=== PATIENT | female | born 1965 | race Caucasian/White ===

== ENCOUNTER 2017-12-05 05:14 | Emergency (ER) | payer MEDICAID ==
[2016-07-10 14:15] VITALS: BMI 27.3
[~2017-12-05 05:14] MED LIST: FLORAJEN3 CAPS460 MG PO; LEVAQUIN750 MG PO; Levaquin PREMIX IV
== END 2017-12-05 06:19 | disposition home or self-care (01) ==
LOC: D.ER 05:14
DX: S22.41XA Multiple fractures of ribs, right side, initial encounter for closed fracture (principal); W01.0XXA Fall on same level from slipping, tripping and stumbling without subsequent striking against object, initial encounter; Y93.89 Activity, other specified; Y92.019 Unspecified place in single-family (private) house as the place of occurrence of the external cause; F17.200 Nicotine dependence, unspecified, uncomplicated

== ENCOUNTER 2017-12-09 01:36 | Emergency (ER) | payer MEDICAID ==
[2016-07-10 14:15] VITALS: BMI 27.3
== END 2017-12-09 03:56 | disposition home or self-care (01) ==
LOC: D.ER 01:36
DX: S22.31XG Fracture of one rib, right side, subsequent encounter for fracture with delayed healing (principal); W01.0XXD Fall on same level from slipping, tripping and stumbling without subsequent striking against object, subsequent encounter

== ENCOUNTER 2019-01-29 13:07 | Emergency (ER) | payer MEDICAID ==
[~2019-01-29] VITALS: Ht 149.9 cm; Wt 63.6 kg
[2019-01-29 13:14] VITALS: BP 130/74; Ht 149.9 cm; Wt 63.6 kg
[2019-01-29 13:48] LABS: APPEARANCE CLEAR (CLEAR); COLOR STRAW (YELLOW); SPECIFIC GRAVITY 1.005 (1.005-1.020)
[2019-01-29 13:49] LABS: BILIRUBIN NEGATIVE (NEGATIVE); GLUCOSE NEGATIVE (NEGATIVE); KETONE NEGATIVE (NEGATIVE); NITRITE NEGATIVE (NEGATIVE); PROTEIN NEGATIVE (NEGATIVE); UROBILINOGEN NORMAL (NORMAL)
[2019-01-29 14:48] LABS: HEMATOCRIT 45.1 % (36.0-48.0); HEMOGLOBIN 15.4 g/dL (12-16); LYMPHOCYTES 26.3 % (15-50); MCH 35.6 pg (26.0-34.0); MCHC 34.1 g/dL (31.0-37.0); MCV 104.2 fL (80.0-100.0); MEAN PLATELET VOLUME 10.1 fL (7.4-10.4); NEUTROPHILS 60.7 % (40-80); PLATELET COUNT 124 10x3/uL (130-400); RBC 4.33 10x6/uL (4.00-5.40); RDW 13.5 % (11.5-14.5); WBC 4.1 10x3/uL (4.8-10.8)
[2019-01-29 15:01] LABS: ALBUMIN 3.4 g/dL (3.4-5.0); ALKALINE PHOSPHATASE 238 U/L (46-116); ALT (SGPT) 145 U/L (10-68); AMYLASE - SERUM 26 U/L (25-115); BILIRUBIN - TOTAL 0.82 mg/dL (0.2-1.3); CALC OSMOLALITY 271 mosm/kg (275-300); CALCIUM 8.9 mg/dL (8.5-10.1); CHLORIDE - SERUM 98 mmol/L (98-107); CREATININE - SERUM 0.8 mg/dL (0.6-1.3); GLUCOSE 91 mg/dL (74-106); LIPASE 233 U/L (73-393); POTASSIUM - SERUM 3.5 mmol/L (3.5-5.1); PROTEIN - SERUM 7.4 g/dL (6.4-8.2); SODIUM 137 mmol/L (136-145); UREA NITROGEN 7 mg/dL (7-18); eGFR NON AFRICAN AMERICAN 80 mL/min (90-120)
[2019-01-29 15:02] LABS: TROPONIN-I < 0.017 ng/mL (0.000-0.060)
== END 2019-01-29 15:00 | disposition left against medical advice (07) ==
LOC: D.ER 13:07
PROVIDERS: Family Medicine
DX: R19.7 Diarrhea, unspecified (principal); K62.5 Hemorrhage of anus and rectum

== ENCOUNTER 2019-09-05 14:53 | Emergency (ER) | payer MEDICAID ==
[2019-09-05 14:58] VITALS: BP 116/81; Ht 149.9 cm
== END 2019-09-05 16:27 | disposition left against medical advice (07) ==
LOC: D.ER 14:53
DX: T63.91XA Toxic effect of contact with unspecified venomous animal, accidental (unintentional), initial encounter (principal); W57.XXXA Bitten or stung by nonvenomous insect and other nonvenomous arthropods, initial encounter

== ENCOUNTER 2019-10-08 19:31 | Emergency (ER) | payer MEDICAID ==
[~2019-10-08] VITALS: Ht 149.9 cm; Wt 68.2 kg
[2019-10-08 19:45] VITALS: BP 125/85; Ht 149.9 cm; Wt 68.2 kg
[2019-10-08 20:10] LABS: APPEARANCE CLEAR (CLEAR); BILIRUBIN NEGATIVE (NEGATIVE); COLOR STRAW (YELLOW); GLUCOSE NEGATIVE (NEGATIVE); KETONE NEGATIVE (NEGATIVE); NITRITE NEGATIVE (NEGATIVE); PROTEIN TRACE mg/dL (NEGATIVE); SPECIFIC GRAVITY 1.005 (1.005-1.020); UROBILINOGEN NORMAL (NORMAL)
== END 2019-10-08 20:20 | disposition left against medical advice (07) ==
LOC: D.ER 19:31
PROVIDERS: Family Medicine
DX: R10.31 Right lower quadrant pain (principal)

== ENCOUNTER 2019-10-25 18:16 | Observation (INO) | payer MEDICAID ==
[~2019-10-25] VITALS: Ht 149.9 cm; Wt 65.9 kg
--- NOTE | 2019-10-25 19:20 | NUR ---
URINE SPECIMEN SENT TO LAB
[2019-10-25 19:30] LABS: APPEARANCE CLEAR (CLEAR); BILIRUBIN NEGATIVE (NEGATIVE); COLOR YELLOW (YELLOW); GLUCOSE NEGATIVE (NEGATIVE); KETONE NEGATIVE (NEGATIVE); NITRITE NEGATIVE (NEGATIVE); PROTEIN NEGATIVE (NEGATIVE); UROBILINOGEN NORMAL (NORMAL)
[2019-10-25 19:31] LABS: RED CELLS - URINE OCC /hpf (0-5); WHITE CELLS - URINE OCC /hpf (NEGATIVE)
[2019-10-25 19:45] LABS: CALC OSMOLALITY 285 mosm/kg (275-300); CALCIUM 8.9 mg/dL (8.5-10.1); CARBON DIOXIDE 26.3 mmol/L (21.0-32.0); CHLORIDE - SERUM 108 mmol/L (98-107); CREATININE - SERUM 0.7 mg/dL (0.6-1.3); GLUCOSE 98 mg/dL (74-106); POTASSIUM - SERUM 3.7 mmol/L (3.5-5.1); SODIUM 145 mmol/L (136-145); UREA NITROGEN 3 mg/dL (7-18); eGFR NON AFRICAN AMERICAN > 90 mL/min (90-120)
[2019-10-25 19:47] LABS: BASOPHILS 0.6 % (0-2); EOSINOPHILS 0.9 % (0-7); HEMATOCRIT 42.7 % (36.0-48.0); HEMOGLOBIN 13.6 g/dL (12-16); LYMPHOCYTES 27.8 % (15-50); MCH 32.1 pg (26.0-34.0); MCHC 31.9 g/dL (31.0-37.0); MCV 100.7 fL (80.0-100.0); MEAN PLATELET VOLUME 10.4 fL (7.4-10.4); MONOCYTES 8.6 % (2-11); NEUTROPHILS 62.1 % (40-80); PLATELET COUNT 111 10x3/uL (130-400); RBC 4.24 10x6/uL (4.00-5.40); RDW 14.2 % (11.5-14.5); WBC 6.8 10x3/uL (4.8-10.8)
--- NOTE | 2019-10-25 19:51 | NUR ---
DR LAND NOTIFIED AND REVIEWED PT's BEHAVIOR AND ASSESSMENT RESLUTS. PT IS A LOW BENI PER DR LAND, DR LAND STATED TO GIVE RESOURCES TO PT A T TIME OF DICHARGE. NO FURTHER ORDERS AT THIS TIME . RESOURCE REVIEWED WITH PT AND SHE VERBALIZED UNDERSTANDING.
--- NOTE | 2019-10-25 19:51 | NUR ---
MENTAL HEALTH SCREENING COMPLETE- LOW RISK.
[2019-10-25 19:53] LABS: ALBUMIN 3.1 g/dL (3.4-5.0); ALKALINE PHOSPHATASE 246 U/L (46-116); ALT (SGPT) 27 U/L (10-68); AMYLASE - SERUM 32 U/L (25-115); BILIRUBIN - TOTAL 1.14 mg/dL (0.2-1.3); LIPASE 224 U/L (73-393); PROTEIN - SERUM 7.5 g/dL (6.4-8.2)
--- NOTE | 2019-10-25 19:54 | NUR ---
PT CONSIDERED LOW RISK PER MENTAL HEALTH RN AND ASSESSMENT.
[2019-10-25 19:56] LABS: TROPONIN-I < 0.017 ng/mL (0.000-0.060)
--- NOTE | 2019-10-25 20:20 | NUR ---
PT LEFT ED VIA STRETCHER FOR CT.
--- NOTE | 2019-10-25 20:39 | NUR ---
PT RETURNED FROM CT VIA STRETCHER.
--- NOTE | 2019-10-25 21:43 | NUR ---
PT UPDATED ON PLAN OF CARE. NO S/S OF ACUTE DISTRESS NOTED. PT FAMILY AT BEDSIDE.
[2019-10-25 21:44] VITALS: BP 140/80
--- NOTE | 2019-10-25 21:51 | NUR ---
PT AMBULATED TO RESTROOM WITH A STEADY GAIT.
--- NOTE | 2019-10-25 22:28 | NUR ---
PT AMBULATED TO RESTROOM WITH A STEADY GAIT.
--- NOTE | 2019-10-25 22:39 | NUR ---
REC'D PATIENT FROM ER. NO S/S OF DISTRESS. BED IN LOWEST POSITION AND CALL LIGHT WITHIN REACH. ENCOURAGED THE PATIENT TO CALL IF SHE HAS NEEDS. WILL CONTINUE TO MONITOR.
[2019-10-25 23:00] VITALS: BP 119/73; BMI 29.3
[2019-10-26] VITALS: BP 112/67
[2019-10-26 04:00] VITALS: BP 114/4
[2019-10-26 04:43] LABS: BASOPHILS 0.5 % (0-2); EOSINOPHILS 1.9 % (0-7); HEMATOCRIT 35.2 % (36.0-48.0); HEMOGLOBIN 11.3 g/dL (12-16); IMMATURE GRANULOCYTES 0.2 % (0-5); LYMPHOCYTES 36.4 % (15-50); MCH 31.7 pg (26.0-34.0); MCHC 32.1 g/dL (31.0-37.0); MCV 98.9 fL (80.0-100.0); MEAN PLATELET VOLUME 9.9 fL (7.4-10.4); MONOCYTES 7.7 % (2-11); NEUTROPHILS 53.3 % (40-80); PLATELET COUNT 94 10x3/uL (130-400); RBC 3.56 10x6/uL (4.00-5.40); RDW 14.2 % (11.5-14.5); WBC 4.3 10x3/uL (4.8-10.8)
[2019-10-26 04:59] LABS: APTT 42.7 SECONDS (22.8-39.4); INR 1.29 (0.85-1.17); PROTIME 15.5 SECONDS (11.6-15.0)
[2019-10-26 05:21] LABS: ALBUMIN 2.6 g/dL (3.4-5.0); ALKALINE PHOSPHATASE 195 U/L (46-116); AMYLASE - SERUM 25 U/L (25-115); BILIRUBIN - TOTAL 0.93 mg/dL (0.2-1.3); CALC OSMOLALITY 280 mosm/kg (275-300); CALCIUM 7.9 mg/dL (8.5-10.1); CHLORIDE - SERUM 107 mmol/L (98-107); GLUCOSE 74 mg/dL (74-106); MAGNESIUM - SERUM 1.7 mg/dL (1.8-2.4); PHOSPHOROUS 2.9 mg/dL (2.5-4.9); PROTEIN - SERUM 6.1 g/dL (6.4-8.2); SODIUM 143 mmol/L (136-145); THYROID STIMULATING HORMONE 6.09 uIU/mL (0.36-3.74); UREA NITROGEN 3 mg/dL (7-18)
[2019-10-26 05:24] LABS: ALT (SGPT) 20 U/L (10-68); CREATININE - SERUM 0.5 mg/dL (0.6-1.3); LIPASE 160 U/L (73-393); POTASSIUM - SERUM 3.1 mmol/L (3.5-5.1); eGFR NON AFRICAN AMERICAN > 90 mL/min (90-120)
[2019-10-26 07:42] VITALS: Ht 149.9 cm; Wt 65.9 kg
--- NOTE | 2019-10-26 08:00 | NUR ---
AWAKE AND ALERT. ORIENTED X3. NO C/O AT THIS TIME. LUNGS ARE CLEAR BILATERALLY, NO COUGH NOTED. SKIN IS INTACT WTIHOUT REDNESS. IV TO LEFT FOREARM IS PATENT WITHOUT REDNESS AT INSERTION SITE. UP TO BR PER SELF. DENIES NEEDS.
--- NOTE | 2019-10-26 08:30 | NUR ---
TEST IN PROGRESS. DR. HUGHES HERE. NEW ORDERS RECEIVED.
[2019-10-26 08:45] VITALS: BP 119/81
[2019-10-26] MEDS ORDERED: CENTRUM COMPLE1 EACH PO (10:07)
[2019-10-26] MEDS ORDERED: SYNTHROID75 MCG PO (10:09)
--- NOTE | 2019-10-26 10:54 | NUR ---
ATE MOST OF BREAKFAST WITHOUT C/O NAUSEA OR INCREASED PAIN. DENIES NEEDS.
--- NOTE | 2019-10-26 11:05 | NUR ---
PATIENT DISCHARGED TO HOME. DISCHARGE INSTRUCTIONS GIVEN BOTH VERBALLY AND WRITTEN. ALL QUESTIONS ANSWERED. PATIENT VERBALIZED UNDERSTANDING OF SAME. NEEDED PRESCRIPTIONS ESCRIBED TO PHARMACY OF CHOICE. IV TO LEFT AC D/C WITH CATHETER INTACT. WAITING ON RIDE TO D/C HOME.
--- NOTE | 2019-10-26 11:18 | NUR ---
DISCHARGED TO HOME AMBULATORY WITH FAMILY. ALL BELONGINGS WITH PATIENT.
== END 2019-10-26 11:18 | disposition home or self-care (01) ==
LOC: D.ER 18:16 → D.MS 21:50 → OBSVTIME 21:50 → D.MS 21:50
PROVIDERS: Family Medicine; Surgery; ADMIT Internal Medicine Nephrology; ATTEND Internal Medicine Nephrology
DX: K81.0 Acute cholecystitis (principal); F10.129 Alcohol abuse with intoxication, unspecified; D75.89 Other specified diseases of blood and blood-forming organs; F17.203 Nicotine dependence unspecified, with withdrawal; F41.8 Other specified anxiety disorders; F31.9 Bipolar disorder, unspecified

== ENCOUNTER 2019-11-07 05:46 | Emergency (ER) | payer MEDICAID ==
[~2019-11-07] VITALS: Ht 149.9 cm; Wt 81.8 kg
[~2019-11-07 05:46] MED LIST changes: +CENTRUM COMPLE1 EACH PO; +SYNTHROID75 MCG PO
[2019-11-07 05:50] VITALS: Ht 149.9 cm; Wt 81.8 kg
[2019-11-07 06:18] LABS: BASOPHILS 0.6 % (0-2); HEMATOCRIT 37.1 % (36.0-48.0); HEMOGLOBIN 11.9 g/dL (12-16); IMMATURE GRANULOCYTES 0.2 % (0-5); LYMPHOCYTES 29.1 % (15-50); MCH 31.5 pg (26.0-34.0); MCHC 32.1 g/dL (31.0-37.0); MCV 98.1 fL (80.0-100.0); MEAN PLATELET VOLUME 10.7 fL (7.4-10.4); MONOCYTES 9.3 % (2-11); NEUTROPHILS 58.8 % (40-80); RBC 3.78 10x6/uL (4.00-5.40); RDW 14.8 % (11.5-14.5); WBC 5.1 10x3/uL (4.8-10.8)
[2019-11-07 06:23] LABS: HCG URINE NEGATIVE (NEGATIVE)
[2019-11-07 06:25] LABS: APPEARANCE CLEAR (CLEAR); COLOR STRAW (YELLOW); SPECIFIC GRAVITY 1.005 (1.005-1.020)
[2019-11-07 06:26] LABS: BILIRUBIN NEGATIVE (NEGATIVE); GLUCOSE NEGATIVE (NEGATIVE); KETONE NEGATIVE (NEGATIVE); NITRITE NEGATIVE (NEGATIVE); PROTEIN NEGATIVE (NEGATIVE); UROBILINOGEN NORMAL (NORMAL)
[2019-11-07 06:44] LABS: CALC OSMOLALITY 282 mosm/kg (275-300); CALCIUM 8.4 mg/dL (8.5-10.1); CARBON DIOXIDE 27.2 mmol/L (21.0-32.0); CHLORIDE - SERUM 106 mmol/L (98-107); CREATININE - SERUM 0.6 mg/dL (0.6-1.3); GLUCOSE 111 mg/dL (74-106); POTASSIUM - SERUM 3.7 mmol/L (3.5-5.1); SODIUM 143 mmol/L (136-145); UREA NITROGEN 5 mg/dL (7-18); eGFR NON AFRICAN AMERICAN > 90 mL/min (90-120)
[2019-11-07 06:52] LABS: PLATELET COUNT 62 10x3/uL (130-400)
[2019-11-07 06:53] LABS: ALBUMIN 2.9 g/dL (3.4-5.0); ALKALINE PHOSPHATASE 225 U/L (46-116); ALT (SGPT) 30 U/L (10-68); AMYLASE - SERUM 42 U/L (25-115); BILIRUBIN - TOTAL 0.95 mg/dL (0.2-1.3); LIPASE 282 U/L (73-393); PROTEIN - SERUM 7.2 g/dL (6.4-8.2)
[2019-11-07 06:55] LABS: TROPONIN-I < 0.017 ng/mL (0.000-0.060)
[2019-11-07 07:42] LABS: PLATELET ESTIMATE DECREASED
[2019-11-07 09:16] VITALS: BP 133/67
[2019-11-07] MEDS ORDERED: FLAGYL500 MG PO (09:34)
[2019-11-07] MEDS ORDERED: LEVOFLOXACIN500 MG PO (09:34)
== END 2019-11-07 09:42 | disposition home or self-care (01) ==
LOC: D.ER 05:46
PROVIDERS: Family Medicine
DX: K52.9 Noninfective gastroenteritis and colitis, unspecified (principal); N88.8 Other specified noninflammatory disorders of cervix uteri; F10.129 Alcohol abuse with intoxication, unspecified; Y90.8 Blood alcohol level of 240 mg/100 ml or more; J45.909 Unspecified asthma, uncomplicated; Z72.0 Tobacco use

== ENCOUNTER 2020-04-04 10:20 | Emergency (ER) | payer MEDICAID ==
[~2020-04-04] VITALS: Ht 149.9 cm; Wt 63.6 kg
[~2020-04-04 10:20] MED LIST changes: +FLAGYL500 MG PO; +LEVOFLOXACIN500 MG PO
[2020-04-04 10:22] VITALS: Ht 149.9 cm; Wt 63.6 kg
[2020-04-04 10:56] LABS: BILIRUBIN NEGATIVE (NEGATIVE); GLUCOSE NEGATIVE (NEGATIVE); KETONE SMALL mg/dL (NEGATIVE); NITRITE NEGATIVE (NEGATIVE); UROBILINOGEN NORMAL (NORMAL)
[2020-04-04 11:07] LABS: BASOPHILS 0.9 % (0-2); EOSINOPHILS 1.4 % (0-7); HEMATOCRIT 25.1 % (36.0-48.0); HEMOGLOBIN 7.6 g/dL (12-16); MCH 27.4 pg (26.0-34.0); MCHC 30.3 g/dL (31.0-37.0); MCV 90.6 fL (80.0-100.0); MEAN PLATELET VOLUME 9.1 fL (7.4-10.4); MONOCYTES 7.5 % (2-11); NEUTROPHILS 45.2 % (40-80); RBC 2.77 10x6/uL (4.00-5.40); RDW 19.8 % (11.5-14.5); WBC 3.5 10x3/uL (4.8-10.8)
[2020-04-04 11:09] LABS: CALC OSMOLALITY 282 mosm/kg (275-300); CALCIUM 7.7 mg/dL (8.5-10.1); CARBON DIOXIDE 27.8 mmol/L (21.0-32.0); CHLORIDE - SERUM 104 mmol/L (98-107); CREATININE - SERUM 0.6 mg/dL (0.6-1.3); GLUCOSE 97 mg/dL (74-106); POTASSIUM - SERUM 3.4 mmol/L (3.5-5.1); SODIUM 143 mmol/L (136-145); UREA NITROGEN 7 mg/dL (7-18); eGFR NON AFRICAN AMERICAN > 90 mL/min (90-120)
[2020-04-04 11:15] LABS: ALBUMIN 2.7 g/dL (3.4-5.0); ALKALINE PHOSPHATASE 216 U/L (30-120); ALT (SGPT) 29 U/L (10-68); BILIRUBIN - TOTAL 0.83 mg/dL (0.2-1.3); PROTEIN - SERUM 6.6 g/dL (6.4-8.2)
[2020-04-04 11:16] LABS: PLATELET COUNT 40 10x3/uL (130-400)
[2020-04-04 11:51] LABS: UDS - AMPHET NEGATIVE QUAL (NEGATIVE); UDS - BARB NEGATIVE QUAL (NEGATIVE); UDS - BENZO NEGATIVE QUAL (NEGATIVE); UDS - COCAINE NEGATIVE QUAL (NEGATIVE); UDS - OPIATE NEGATIVE QUAL (NEGATIVE); UDS - PCP NEGATIVE QUAL (NEGATIVE); UDS - THC NEGATIVE QUAL (NEGATIVE)
--- NOTE | 2020-04-04 11:59 | NUR ---
Unable to assess at this time due to pt condition and pending test results. will attempt to reassess when labs are back. will notify charge nurse and attending in regards to findings.
[2020-04-04 14:23] LABS: INR 1.11 (0.85-1.17); PROTIME 14.3 SECONDS (11.6-15.0)
[2020-04-04 14:24] LABS: APTT 41.3 SECONDS (22.8-39.4)
[2020-04-04 15:42] VITALS: BP 119/61
== END 2020-04-04 15:43 | disposition other institution (70) ==
LOC: D.ER 10:20
PROVIDERS: Family Medicine
DX: F10.129 Alcohol abuse with intoxication, unspecified (principal); Y90.8 Blood alcohol level of 240 mg/100 ml or more; D64.9 Anemia, unspecified; K92.2 Gastrointestinal hemorrhage, unspecified; R45.851 Suicidal ideations; J45.909 Unspecified asthma, uncomplicated; Z72.0 Tobacco use

== ENCOUNTER 2020-04-28 17:04 | Emergency (ER) | payer MEDICAID ==
[~2020-04-28] VITALS: Ht 149.9 cm; Wt 62.7 kg
[2020-04-28 17:24] VITALS: BP 112/70; Ht 149.9 cm; Wt 62.7 kg
[2020-04-29] MEDS ORDERED: TORADOL10 MG PO (20:41)
[2020-04-29] MEDS ORDERED: ULTRAM50 MG PO (20:41)
== END 2020-04-28 19:47 | disposition left against medical advice (07) ==
LOC: D.ER 17:04
DX: S99.919A Unspecified injury of unspecified ankle, initial encounter (principal)

== ENCOUNTER 2020-04-29 01:40 | Observation (INO) | payer MEDICAID ==
[~2020-04-29] VITALS: Ht 149.9 cm; Wt 63.5 kg
--- NOTE | 2020-04-29 01:52 | NUR ---
TRAUMA BAND [id number]
--- NOTE | 2020-04-29 02:34 | NUR ---
PT ASSISTED WITH BEDPAN. DENIES ANY FURTHER NEEDS AT THIS TIME. CALL LIGHT WITHIN REACH. WILL CONTINUE TO MONITOR.
[2020-04-29 02:53] LABS: BASOPHILS 0.7 % (0-2); EOSINOPHILS 1.7 % (0-7); HEMOGLOBIN 9.7 g/dL (12-16); IMMATURE GRANULOCYTES 0.1 % (0-5); LYMPHOCYTES 25.4 % (15-50); MCH 27.6 pg (26.0-34.0); MCHC 31.3 g/dL (31.0-37.0); MCV 88.3 fL (80.0-100.0); MEAN PLATELET VOLUME 9.2 fL (7.4-10.4); MONOCYTES 7.6 % (2-11); NEUTROPHILS 64.5 % (40-80); RBC 3.51 10x6/uL (4.00-5.40); RDW 20.1 % (11.5-14.5); WBC 7.1 10x3/uL (4.8-10.8)
[2020-04-29 02:58] LABS: BILIRUBIN NEGATIVE (NEGATIVE); EPITHELIAL CELLS 0-5 /hpf (0-5); GLUCOSE NEGATIVE (NEGATIVE); KETONE NEGATIVE (NEGATIVE); NITRITE NEGATIVE (NEGATIVE); PLATELET COUNT 162 10x3/uL (130-400); UROBILINOGEN NORMAL (NORMAL)
[2020-04-29 03:02] LABS: CALC OSMOLALITY 272 mosm/kg (275-300); CALCIUM 8.3 mg/dL (8.5-10.1); CARBON DIOXIDE 26.3 mmol/L (21.0-32.0); CHLORIDE - SERUM 103 mmol/L (98-107); CREATININE - SERUM 0.8 mg/dL (0.6-1.3); GLUCOSE 92 mg/dL (74-106); SODIUM 138 mmol/L (136-145); UREA NITROGEN 3 mg/dL (7-18); eGFR NON AFRICAN AMERICAN 79 mL/min (90-120)
[2020-04-29 03:04] LABS: UDS - AMPHET NEGATIVE QUAL (NEGATIVE); UDS - BARB NEGATIVE QUAL (NEGATIVE); UDS - BENZO POSITIVE QUAL (NEGATIVE); UDS - COCAINE NEGATIVE QUAL (NEGATIVE); UDS - OPIATE NEGATIVE QUAL (NEGATIVE); UDS - PCP NEGATIVE QUAL (NEGATIVE); UDS - THC NEGATIVE QUAL (NEGATIVE)
[2020-04-29 03:05] LABS: INR 1.17 (0.85-1.17); PROTIME 14.8 SECONDS (11.6-15.0)
[2020-04-29 03:06] LABS: APTT 44.7 SECONDS (22.8-39.4)
[2020-04-29 03:16] LABS: ALBUMIN 2.7 g/dL (3.4-5.0); ALKALINE PHOSPHATASE 171 U/L (30-120); ALT (SGPT) 15 U/L (10-68); BILIRUBIN - TOTAL 1.22 mg/dL (0.2-1.3); CREATINE KINASE 56 UL (21-215); LIPASE 126 U/L (73-393); MAGNESIUM - SERUM 1.9 mg/dL (1.8-2.4); PRO BNP 89 pg/mL (0-125); PROTEIN - SERUM 6.8 g/dL (6.4-8.2); THYROID STIMULATING HORMONE 2.57 uIU/mL (0.36-3.74); TROPONIN-I < 0.017 ng/mL (0.000-0.060)
--- NOTE | 2020-04-29 03:26 | NUR ---
PT GIVEN BLANKET, DENIES FURTHER NEEDS AT THIS TIME. CALL LIGHT WITH REACH. WILL CONTINUE TO MONITOR.
--- NOTE | 2020-04-29 04:29 | NUR ---
PT ASSISTED WITH BEDPAN
--- NOTE | 2020-04-29 05:10 | NUR ---
RECEIVED PT TO FLOOR FROM ER VIA STRETCHER. PT ROLLER FROM STRETCHER ONTO BED. LEFT ANKLE SWOLLEN AND BRUISED. RATES PAIN 7/10 BUT SAYS IT WILL "SETTLE DOWN" AND DOES NOT NEED PAIN MED AT THIS TIME. PT STATES SHE DOES NOT TAKE ANY HOME MEDS. REVIEWED HISTORY. PT INCONTINENT AT TIMES. CHANGED BRIEF AND PUT ANOTHER ON. BED ALARM ON. PROVIDED INCENTIVE SPIROMETER AND INSTRUCTED ON USE. NO OTHER NEEDS. PT SLEEPING NOW.
[2020-04-29 06:15] VITALS: BP 112/70; Ht 149.9 cm; Wt 63.5 kg
[2020-04-29 08:45] VITALS: BP 107/60
[2020-04-29 12:57] VITALS: BP 156/88
--- NOTE | 2020-04-29 13:00 | NUR ---
BACK FROM PACU VIA BED. DRESSING CDI TO LLE.
[2020-04-29 13:15] VITALS: BP 93/34
--- NOTE | 2020-04-29 13:30 | NUR ---
PATIENT IS WANTING TO DC HOME. SHE SAYS SHE IS NOT STAYING.SHE SAYS SHE WILL LEAVE IF SHE DOESNT HAVE PAPERS FOR DISCHARGE. INSTRUCTED PATIENT THAT SHE WOULD HAVE TO LEAVE AMA.THAT THE DOCTOR HAS NOT AGREED WITH DISCHARGE HOME.
--- NOTE | 2020-04-29 14:41 | NUR ---
RIDE HERE AND PATIENT DEMANDING TO LEAVE.
--- NOTE | 2020-04-29 14:52 | NUR ---
IV DCD WITH CATH TIP INTACT. PATIENT SIGNED AMA FORM. LEFT UNIT VIA WHEELCHAIR FOR TRANSPORT HOME
[2020-04-29] MEDS ORDERED: ULTRAM50 MG PO (20:41)
[2020-04-29] MEDS ORDERED: TORADOL10 MG PO (20:41)
== END 2020-04-29 14:56 | disposition left against medical advice (07) ==
LOC: D.ER 01:40 → D.MS 02:48 → OBSVTIME 02:48 → D.MS 05:00
PROVIDERS: Family Medicine; ADMIT Family Medicine; ATTEND Family Medicine
DX: S82.492A Other fracture of shaft of left fibula, initial encounter for closed fracture (principal); W19.XXXA Unspecified fall, initial encounter; Y93.9 Activity, unspecified; Y92.009 Unspecified place in unspecified non-institutional (private) residence as the place of occurrence of the external cause; D64.9 Anemia, unspecified; F17.203 Nicotine dependence unspecified, with withdrawal; F10.10 Alcohol abuse, uncomplicated; F31.9 Bipolar disorder, unspecified; F41.8 Other specified anxiety disorders; K74.60 Unspecified cirrhosis of liver; F17.200 Nicotine dependence, unspecified, uncomplicated

== ENCOUNTER 2020-04-29 18:20 | Emergency (ER) | payer MEDICAID ==
[2020-04-29 18:27] VITALS: BP 116/64; Ht 149.9 cm
[2020-04-29] MEDS ORDERED: ULTRAM50 MG PO (20:41)
[2020-04-29] MEDS ORDERED: TORADOL10 MG PO (20:41)
--- NOTE | 2020-04-30 07:40 | OP ---
PATIENT NAME: TYSHAWN NORTH MEDICAL RECORD: [id number] :67 LOCATION:.ER ADMISSION DATE: SURGEON: JUNIOR LEIGH DO DATE OF OPERATION: 04/29/2020 PROCEDURE PERFORMED: Left ankle open reduction internal fixation. PREOPERATIVE DIAGNOSIS: Left distal fibula fracture, displaced. POSTOPERATIVE DIAGNOSIS: Left distal fibula fracture, displaced. INDICATIONS: Ms. North is a 54-year-old female who fractured her left ankle. She thinks last night, but she is not sure. She does have liver failure as well as alcoholism. She was admitted to the hospital. I saw her this morning, she had been n.p.o. She said she had a few sips of coffee, but that was it. I informed her that we need to fix the ankle as it was displaced and she does have some medial clear space widening noted on x-ray. This was without a stress view, so we needed to probably put a syndesmotic fixation type in there. I informed her of the risks including infection, bleeding, damage to nerves or vessels, continued pain, need for further surgery, blood clots, and even and she signed the consent. SURGEON: Junior Leigh DO DESCRIPTION OF PROCEDURE: The patient was taken to operative suite and laid in supine position, given general anesthetic. A gram of vancomycin was given preoperatively. She was sedated and LMA was placed. The left lower extremity was then prepped and draped in sterile fashion. A timeout was performed; everyone was in agreement with the correct side, site, patient and procedure. I then began by exsanguinating the left lower extremity with an Esmarch, tourniquet was inflated to 300 mmHg and was up for 22 minutes. We then made an incision on the lateral aspect of the ankle. Careful dissection down to the fibula exposed the fracture, reduced it and put a 4 hole and plate on, put the screw into the shaft and then 4 locking screws distally and then another locking screw proximally and there was a good reduction of the fracture confirmed on AP, mortise and lateral and then put a ZipTight across the syndesmosis and cinched it down with the ankle dorsiflexed and a clamp across the ankle joint. This held it very well. The tourniquet was then let down and the ZipTight sutures were removed. Any bleeding was coagulated with a pickup and a Bovie. The site was then irrigated and then closed by Jagdish Gillis, certified surgical catering assistant with 2-0 Vicryl in inverted interrupted fashion. ZipLine was placed on the lateral aspect of the ankle. She was then dressed with Adaptic, 4 x 4s, ABD on the heel, cast padding and placed on a 4 x 30 splint with neutral dorsiflexion. He was awakened and taken to recovery in stable condition. BLOOD LOSS: Minimal. COMPLICATION: None. TRANSINT:[id number] Voice Confirmation ID: [id number] DOCUMENT ID: [id number] OPERATIVE REPORT [id number] TYSHAWN NORTH MICHAEL D, DO at 0740 CC: [id number] DICTATION DATE: 04/29/20 1229 ENGINE WATCHMAN: 04/29/202208 DEP ER 04/29/20 [id number] [place] [address]
== END 2020-04-29 21:24 | disposition home or self-care (01) ==
LOC: D.ER 18:20
DX: M79.605 Pain in left leg (principal); G89.18 Other acute postprocedural pain; J45.909 Unspecified asthma, uncomplicated

== ENCOUNTER 2020-05-01 10:58 | Emergency (ER) | payer MEDICAID ==
[~2020-05-01] VITALS: Ht 149.9 cm; Wt 63.6 kg
[~2020-05-01 10:58] MED LIST changes: +TORADOL10 MG PO; +ULTRAM50 MG PO
[2020-05-01 11:06] VITALS: Ht 149.9 cm; Wt 63.6 kg
[2020-05-01] MEDS ORDERED: LIBRIUM25 MG PO (11:08)
[2020-05-01 14:56] VITALS: BP 126/58
== END 2020-05-01 14:57 | disposition home or self-care (01) ==
LOC: D.ER 10:58
DX: G89.18 Other acute postprocedural pain (principal); Z91.19 Patient's noncompliance with other medical treatment and regimen; M25.572 Pain in left ankle and joints of left foot

== ENCOUNTER 2020-05-06 16:46 | Emergency (ER) | payer MEDICAID ==
[~2020-05-06] VITALS: Ht 149.9 cm; Wt 62.7 kg
[~2020-05-06 16:46] MED LIST changes: +LIBRIUM25 MG PO
[2020-05-06 16:51] VITALS: Ht 149.9 cm; Wt 62.7 kg
[2020-05-06] MEDS ORDERED: ULTRAM50 MG PO (17:50)
[2020-05-06] MEDS ORDERED: ARTHROTEC 501 TAB.EC PO (17:50)
[2020-05-06 19:03] VITALS: BP 128/79
== END 2020-05-06 19:03 | disposition home or self-care (01) ==
LOC: D.ER 16:46
DX: S09.90XA Unspecified injury of head, initial encounter (principal); M25.572 Pain in left ankle and joints of left foot; Z91.19 Patient's noncompliance with other medical treatment and regimen; P12.2 Epicranial subaponeurotic hemorrhage due to birth injury; Z91.81 History of falling; W19.XXXA Unspecified fall, initial encounter; Y93.9 Activity, unspecified; Y92.9 Unspecified place or not applicable

== ENCOUNTER 2020-06-06 22:41 | Inpatient (IN) | payer MEDICAID ==
[~2020-06-06] VITALS: Ht 149.9 cm; Wt 79.6 kg
[~2020-06-06 22:41] MED LIST changes: +ARTHROTEC 501 TAB.EC PO
[2020-06-06 23:51] LABS: HEMOGLOBIN 10.6 g/dL (12-16); LYMPHOCYTES 23.2 % (15-50); MCHC 31.2 g/dL (31.0-37.0); MCV 89.7 fL (80.0-100.0); MEAN PLATELET VOLUME 8.9 fL (7.4-10.4); PLATELET COUNT 151 10x3/uL (130-400); RBC 3.79 10x6/uL (4.00-5.40); RDW 20.3 % (11.5-14.5); WBC 7.1 10x3/uL (4.8-10.8)
[2020-06-07] VITALS (13 sets, daily range): BP systolic 87–157; BP diastolic 44–86; Ht 149.9 cm; Wt 79.6 kg
[2020-06-07 00:06] LABS: APTT 43.5 SECONDS (22.8-39.4)
[2020-06-07 00:08] LABS: INR 1.34 (0.85-1.17); PROTIME 16.5 SECONDS (11.6-15.0)
[2020-06-07 00:17] LABS: ALBUMIN 2.8 g/dL (3.4-5.0); ALKALINE PHOSPHATASE 197 U/L (30-120); ALT (SGPT) 15 U/L (10-68); BILIRUBIN - TOTAL 4.31 mg/dL (0.2-1.3); C-REACTIVE PROTEIN 10.1 mg/dL (0.0-0.9); CALC OSMOLALITY 268 mosm/kg (275-300); CALCIUM 8.6 mg/dL (8.5-10.1); CARBON DIOXIDE 32.5 mmol/L (21.0-32.0); CHLORIDE - SERUM 98 mmol/L (98-107); CREATININE - SERUM 0.7 mg/dL (0.6-1.3); GLUCOSE 101 mg/dL (74-106); LIPASE 68 U/L (73-393); PRO BNP 266 pg/mL (0-125); SODIUM 136 mmol/L (136-145); UREA NITROGEN 5 mg/dL (7-18); eGFR NON AFRICAN AMERICAN > 90 mL/min (90-120)
[2020-06-07 00:23] LABS: TROPONIN-I < 0.017 ng/mL (0.000-0.060)
[2020-06-07 02:42] LABS: UDS - AMPHET NEGATIVE QUAL (NEGATIVE); UDS - BARB NEGATIVE QUAL (NEGATIVE); UDS - BENZO POSITIVE QUAL (NEGATIVE); UDS - COCAINE NEGATIVE QUAL (NEGATIVE); UDS - OPIATE NEGATIVE QUAL (NEGATIVE); UDS - PCP NEGATIVE QUAL (NEGATIVE); UDS - THC NEGATIVE QUAL (NEGATIVE)
[2020-06-07 02:43] LABS: BILIRUBIN NEGATIVE (NEGATIVE); GLUCOSE NEGATIVE (NEGATIVE); KETONE MODERATE mg/dL (NEGATIVE); NITRITE POSITIVE (NEGATIVE); UROBILINOGEN NORMAL (NORMAL)
[2020-06-07 02:45] LABS: BACTERIA FEW /hpf (NEGATIVE); EPITHELIAL CELLS 0-5 /hpf (0-5); RED CELLS - URINE 0-5 /hpf (0-5)
--- NOTE | 2020-06-07 06:50 | NUR ---
A&O RESTING IN BED WITH EYES CLOSED. AROUSES TO VOICE. NO C/O PAIN. NO S/S OF ACUTE DISTRESS NOTED. UP WITH ASSIST. JAUNDICE IN COLOR, YELLOW SCLERA. ABDOMEN DISTENDED AND FIRM. SCHEDULED FOR A CT GUIDED PARACENTESIS TODAY. CONSENTS SIGNED AND IN CHART. BOWEL SOUNDS HYPOACTIVE X4 QUADRANTS. IV TO LEFT AC, MVI INFUSING @ 125ML/HR. SITE PATENT WITHOUT REDNESS OR SWELLING. SCD TO RIGHT LEG. DENIES ANY NEEDS AT THIS TIME. CALL LIGHT IN REACH. WILL CONTINUE TO MONITOR.
[2020-06-07 07:05] LABS: % SATURATION 94 % (15-55); IRON 227 ug/dl (35-150); TOTAL IRON BIND CAPACITY 241 ug/dl (260-445)
[2020-06-07 07:07] LABS: UNSAT IRON BIND CAPACITY 14 ug/dl (150-375)
[2020-06-07 07:50] LABS: BASOPHILS 0.3 % (0-2); EOSINOPHILS 0.8 % (0-7); HEMATOCRIT 27.2 % (36.0-48.0); HEMOGLOBIN 8.5 g/dL (12-16); IMMATURE GRANULOCYTES 0.2 % (0-5); LYMPHOCYTES 27.6 % (15-50); MCH 27.8 pg (26.0-34.0); MCHC 31.3 g/dL (31.0-37.0); MCV 88.9 fL (80.0-100.0); MEAN PLATELET VOLUME 9.5 fL (7.4-10.4); MONOCYTES 6.3 % (2-11); NEUTROPHILS 64.8 % (40-80); RBC 3.06 10x6/uL (4.00-5.40); RDW 19.8 % (11.5-14.5); WBC 6.4 10x3/uL (4.8-10.8)
[2020-06-07 08:01] LABS: APTT 43.7 SECONDS (22.8-39.4); INR 1.58 (0.85-1.17); PROTIME 18.7 SECONDS (11.6-15.0)
[2020-06-07 08:03] LABS: PLATELET COUNT 107 10x3/uL (130-400)
--- NOTE | 2020-06-07 12:02 | MORECARE ---
CASE MANAGEMENT DISCHARGE SUMMARY PATIENT: TYSHAWN MILES UNIT: [id number] ADM DATE: 06/07/20 AGE: 54 : [birth year] SEX: F ROOM/BED: D.[facility] AUTHOR: NAVJOT BROWN PHYSICIAN: REFERRING PHYSICIAN: YASEMIN TORRES MD DATE OF SERVICE: 06/07/20 Discharge Plan Patient Name: TYSHAWN MILES Facility: [facility]:[place] : 1965 Planned Disposition: Anticipated Discharge Date: Discharge Date: Expected LOS: Initial Reviewer: [email or web address] Initial Review Date: 06/07/2020 Generated: 06/07/20 1:01 pm Comments DCP- Discharge Planning Updated by [email or web address]: Merly Valentine on 06/07/20 10:[address] TRANSFER PROCESS STARTED TO GO TO [facility] I FAXED FACESHEET TO HER AND THEY WILL CALL NANCY RAHMAN APN External Providers [facility] Next Contact Date: Service Request Date: Service Type: Resolution: Reviewer: Comments: Patient Name: TYSHAWN MILES Page 26296 at 1202 All edits/amendments must be made on the electronic document DICTATION DATE: 06/07/20 1201 BURRING WHEEL OPERATOR: DARREN 06/07/20 1201 RPT#: [id number] DC DATE: STATUS: ADM IN [address] [address] END OF REPORT
--- NOTE | 2020-06-07 12:31 | NUR ---
94 SR ON TELEMETRY
--- NOTE | 2020-06-07 12:35 | MORECARE ---
CASE MANAGEMENT DISCHARGE SUMMARY PATIENT: TYSHAWN MILES UNIT: [id number] ADM DATE: 06/07/20 AGE: 54 : 67 SEX: F ROOM/BED: D.[facility] AUTHOR: NAVJOT BROWN PHYSICIAN: REFERRING PHYSICIAN: YASEMIN TORRES MD DATE OF SERVICE: 06/07/20 Discharge Plan Patient Name: TYSHAWN MILES Facility: [facility]:[place] : 1965 Planned Disposition: Anticipated Discharge Date: Discharge Date: Expected LOS: Initial Reviewer: [email or web address] Initial Review Date: 06/07/2020 Generated: 06/07/20 1:35 pm Comments DCP- Discharge Planning Updated by [email or web address]: Merly Valentine on 06/07/20 11:[address] CALLED [facility] SPOKE WITH ELIANA ABOUT TRANSFERING AND THEY DO NOT HAVE A LIVER SPECIALIST DCP- Discharge Planning Updated by [id number]: Merly Valentine on 06/07/20 11:[address] PER IRINA AT [facility], THERE ARE NO BEDS AT THIS TIME DCP- Discharge Planning Updated by [email or web address]: Merly Valentine on 06/07/20 10:[address] TRANSFER PROCESS STARTED TO GO TO [facility] I FAXED FACESHEET TO HER AND THEY WILL CALL NANCY RAHMAN APN Last DP export: 06/07/20 11:02 am Patient Name: TYSHAWN MILES Page 14669 at 1235 All edits/amendments must be made on the electronic document DICTATION DATE: 06/07/20 1235 MEDICAL RESEARCH TECH: DARREN 06/07/20 1235 RPT#: [id number] DC DATE: STATUS: ADM IN [facility] [address] [place] [address] END OF REPORT
[2020-06-07 12:46] LABS: PROTEIN - BODY FLUID 1.8 G/DL
[2020-06-07 13:11] LABS: ALKALINE PHOSPHATASE 126 U/L (30-120); ALT (SGPT) 14 U/L (10-68); BILIRUBIN - TOTAL 3.51 mg/dL (0.2-1.3); CALC OSMOLALITY 274 mosm/kg (275-300); CALCIUM 8.5 mg/dL (8.5-10.1); CARBON DIOXIDE 32.4 mmol/L (21.0-32.0); CHLORIDE - SERUM 104 mmol/L (98-107); CREATININE - SERUM 0.6 mg/dL (0.6-1.3); GLUCOSE 72 mg/dL (74-106); PROTEIN - SERUM 5.7 g/dL (6.4-8.2); SODIUM 140 mmol/L (136-145); UREA NITROGEN 5 mg/dL (7-18); eGFR NON AFRICAN AMERICAN > 90 mL/min (90-120)
[2020-06-07 13:12] LABS: POTASSIUM - SERUM 2.6 mmol/L (3.5-5.1)
[2020-06-07 13:27] LABS: NEUT - BF 36 %
--- NOTE | 2020-06-07 13:27 | NUR ---
I have reviewed this patient and I concur with the Shift Assessment completed by the Licensed Practical Nurse today this shift.
[2020-06-07 13:28] LABS: MACROPHAGES BF 13 %
--- NOTE | 2020-06-07 15:11 | NUR ---
PT ASSISTED TO BATHROOM AND BACK. CL IN REACH. NO FURTHER NEEDS AT THIS TIME. WCTM
--- NOTE | 2020-06-07 16:49 | NUR ---
ASSISTED PT TO BATHROOM AND BACK TO BED. SL LOCKED IV THERAPY, NO FLUIDS TO ORDER WHEN MVI WAS COMPLETED. CL IN REACH. PHONE IN REACH. WCTM
--- NOTE | 2020-06-07 17:39 | MORECARE ---
CASE MANAGEMENT DISCHARGE SUMMARY PATIENT: TYSHAWN MILES UNIT: [id number] ADM DATE: 06/07/20 AGE: 54 : 67 SEX: F ROOM/BED: D.2235 AUTHOR: NAVJOT BROWN PHYSICIAN: REFERRING PHYSICIAN: YASEMIN TORRES MD DATE OF SERVICE: 06/07/20 Discharge Plan Patient Name: TYSHAWN MILES Facility: [facility]:[place] : 1965 Planned Disposition: Anticipated Discharge Date: Discharge Date: Expected LOS: Initial Reviewer: [email or web address] Initial Review Date: 06/07/2020 Generated: 06/07/20 6:38 pm Comments DCP- Discharge Planning Updated by [id number]: Dayna Manning on 06/07/20 4:[address] Patient Name: TYSHAWN MILES Admission Status: ER Accout number: [id number] Admission Date: 06-07-2020 : 1965 Admission Diagnosis: Attending: CALE Current LOS: 1 Anticipated DC Date: Planned Disposition: Primary Insurance: MEDICAID [place] Discharge Planning Comments: CALLED [facility] FOR TRANSFER AND THEY DO NOT HAVE A LIVER SPECIALIST. Marriage And Family Counselor: Dayna Manning DCP- Discharge Planning Updated by [id number]: Merly Valentine on 06/07/20 11:[address] [facility] SPOKE WITH ELIANA ABOUT TRANSFERING AND THEY DO NOT HAVE A LIVER SPECIALIST DCP- Discharge Planning Updated by [email or web address]: Merly Valentine on 06/07/20 11:[address] PER IRINA AT [facility], THERE ARE NO BEDS AT THIS TIME DCP- Discharge Planning Updated by [email or web address]: Merly Valentine on 06/07/20 10:[address] TRANSFER PROCESS STARTED TO GO TO [facility] I FAXED FACESHEET TO HER AND THEY WILL CALL NANCY RAHMAN APN Last DP export: 06/07/20 11:35 am Patient Name: TYSHAWN MILES Page 32478 at 5693 All edits/amendments must be made on the electronic document DICTATION DATE: 06/07/201737 SAS PROGRAMMER ANALYST: DARREN 06/07/201737 RPT#: [id number] DC DATE: STATUS: ADM IN [facility] [address] [place] [address] END OF REPORT
--- NOTE | 2020-06-08 03:19 | NUR ---
ALERT AND ORENTED UP WITH ASSISST AND WALKER. ABLE TO VOICE NEEDS AND WANT STO STAFF. iv TO LEFT AC. TELEMETRY IN PLACE . NO NEEDS AT THIS TIME NO S/S OF DISTRESS.
[2020-06-08 03:52] VITALS: BP 100/52
[2020-06-08 05:54] LABS: BASOPHILS 0.5 % (0-2); EOSINOPHILS 1.1 % (0-7); HEMATOCRIT 25.9 % (36.0-48.0); IMMATURE GRANULOCYTES 0.2 % (0-5); LYMPHOCYTES 29.7 % (15-50); MCH 27.8 pg (26.0-34.0); MCHC 30.9 g/dL (31.0-37.0); MCV 89.9 fL (80.0-100.0); MEAN PLATELET VOLUME 9.1 fL (7.4-10.4); MONOCYTES 7.5 % (2-11); PLATELET COUNT 89 10x3/uL (130-400); RBC 2.88 10x6/uL (4.00-5.40); RDW 19.5 % (11.5-14.5)
[2020-06-08 06:03] LABS: PLATELET ESTIMATE DECREASED; WBC 4.4 10x3/uL (4.8-10.8)
[2020-06-08 06:40] LABS: ALBUMIN 2.4 g/dL (3.4-5.0); ALKALINE PHOSPHATASE 112 U/L (30-120); ALT (SGPT) 10 U/L (10-68); BILIRUBIN - TOTAL 2.99 mg/dL (0.2-1.3); CALC OSMOLALITY 268 mosm/kg (275-300); CALCIUM 7.7 mg/dL (8.5-10.1); CARBON DIOXIDE 28.1 mmol/L (21.0-32.0); CHLORIDE - SERUM 102 mmol/L (98-107); CREATININE - SERUM 0.8 mg/dL (0.6-1.3); GLUCOSE 92 mg/dL (74-106); MAGNESIUM - SERUM 2.3 mg/dL (1.8-2.4); POTASSIUM - SERUM 3.2 mmol/L (3.5-5.1); PROTEIN - SERUM 5.2 g/dL (6.4-8.2); SODIUM 136 mmol/L (136-145); UREA NITROGEN 4 mg/dL (7-18); eGFR NON AFRICAN AMERICAN 79 mL/min (90-120)
--- NOTE | 2020-06-08 07:15 | NUR ---
[facility] CALLED, ASKED IF PT IS TRANSFERRING TO THEIR FACILITY OR [facility]. PER CASE MANAGEMENTS UNDERSTANDING, PT IS TO TRANSFER TO [facility]. TRANSFER TEAM GOING TO CALL BACK AFTER CONFIRMATION OF AVAILABLE BED FOR PT.
--- NOTE | 2020-06-08 07:31 | NUR ---
RESEVED IN REPORT THAT PT MAY TRANSFER TO [facility] WATTING TO FIND OUT. CALL FROM [facility] ABOUT PT. TRANSFER. [place] DISHCHARGE PLANNING NOTE STATED THAT [facility] IN [place] WAS CONTACTED AND THEY HAD NO LIVER SPECIALIST. THERE IS A NOTED THAT [facility] WAS CONTACTED AND HAD NO BEDS AT THIS TIME. WENT OVER NOTES WITH [facility], THEY STATED THEY DO NOT HAVE A LIVER SPECIALIST. WENT OVER NOTES WITH TRANSPLANT REGISTERED NURSE. SHE WAS UNSURE WELL. [facility] STATED SHE WOULD TALK WITH SOMEONE THERE AND RETRUN CALL.
[2020-06-08 08:13] LABS: HEPATITIS C ANTIBODY >11.0 S/CO RAT (0.0-0.9)
--- NOTE | 2020-06-08 08:20 | NUR ---
[facility] [place] [facility], PT HAS A BED TO TRANSFER TO AT THEIR FACILITY. [address], ROOM 3056. RECEIVING DOCTOR IS DOCTOR CEBALLOS.
--- NOTE | 2020-06-08 08:24 | NUR ---
PT ALERT AND ORIENTED X4 UPON ENTERING, UP RIGHT IN BED EATING BREAKFAST. ADMINISTERED MEDICATION, NO DIFFICULTIES. ASSESSMENT PERFORMED AT THIS TIME. DENIES ANY NEEDS. WILL CONTINUE TO MONITOR.
--- NOTE | 2020-06-08 08:26 | NUR ---
PRN POTASSIUM GIVEN TO HELP REPLACED K PER ELECTROLYTE PROTOCOL.
[2020-06-08 09:12] VITALS: BP 92/48
--- NOTE | 2020-06-08 10:04 | NUR ---
CALLED REPORT TO RECEIVING NURSE AT [facility].
[2020-06-08] MEDS ORDERED: ATIVAN IV (10:52)
[2020-06-08] MEDS ORDERED: LIBRIUM25 MG PO (10:52)
[2020-06-08] MEDS ORDERED: NICODERM CQ1 EAC3 TRANSDERM (10:52)
[2020-06-08] MEDS ORDERED: PROTONIX40 MG PO (10:52)
--- NOTE | 2020-06-08 11:10 | MORECARE ---
CASE MANAGEMENT DISCHARGE SUMMARY PATIENT: TYSHAWN MILES UNIT: [id number] ADM DATE: 06/07/20 AGE: 54 : 67 SEX: F ROOM/BED: D.2235 AUTHOR: NAVJOT BROWN PHYSICIAN: REFERRING PHYSICIAN: YASEMIN TORRES MD DATE OF SERVICE: 06/08/20 Discharge Plan Patient Name: TYSHAWN MILES Facility: [facility]:[place] : 1965 Planned Disposition: Anticipated Discharge Date: Discharge Date: Expected LOS: Initial Reviewer: [email or web address] Initial Review Date: 06/07/2020 Generated: 06/08/20 12:09 pm Comments DCP- Discharge Planning Updated by [email or web address]: Dayna Manning on 06/08/20 10:[address] Patient Name: TYSHAWN MILES Admission Status: ER Accout number: [id number] Admission Date: 06-07-2020 : 1965 Admission Diagnosis: Attending: CALE Current LOS: 1 Anticipated DC Date: Planned Disposition: Primary Insurance: MEDICAID [place] Discharge Planning Comments: PATIENT HAS BEEN ACCEPTED AT [place] [address] CEBALL[address] FOR HIGHER LEVEL OF CARE. CM TO FOLLOW AND ASSIST NEEDED. Electricity Trader: Dayna Manning DCP- Discharge Planning Updated by [email or web address]: Dayna Manning on 06/07/20 4:[address] Patient Name: TYSHAWN MILES Admission Status: ER Accout number: [id number] Admission Date: 06-07-2020 : 1965 Admission Diagnosis: Attending: CALE Current LOS: 1 Anticipated DC Date: Planned Disposition: Primary Insurance: MEDICAID [place] Discharge Planning Comments: CALLED [facility] FOR TRANSFER AND THEY DO NOT HAVE A LIVER SPECIALIST. Electricity Trader: Dayna Manning DCP- Discharge Planning Updated by [id number]: Merly Valentine on 06/07/20 11:[address] [facility] SPOKE WITH ELIANA ABOUT TRANSFERING AND THEY DO NOT HAVE A LIVER SPECIALIST DCP- Discharge Planning Updated by [email or web address]: Merly Valentine on 06/07/20 11:[address] PER IRINA AT [facility], THERE ARE NO BEDS AT THIS TIME DCP- Discharge Planning Updated by [email or web address]: Merly Valentine on 06/07/20 10:[address] TRANSFER PROCESS STARTED TO GO TO [facility] I FAXED FACESHEET TO HER AND THEY WILL CALL NANCY RAHMAN APN Last DP export: 06/07/20 4:39 pm Patient Name: TYSHAWN MILES Page 35004 at 1110 All edits/amendments must be made on the electronic document DICTATION DATE: 06/08/20 111 RUBBER MOLD MAKER: DARREN 06/08/20 1110 RPT#: [id number] DC DATE: STATUS: ADM IN [facility] [address] [place] [address] END OF REPORT
--- NOTE | 2020-06-08 11:53 | NUR ---
I have reviewed this patient and I concur with the Shift Assessment completed by the Licensed Practical Nurse today this shift.
--- NOTE | 2020-06-08 14:47 | NUR ---
PT SIGNED ALL NECESSARY DISCHARGE AND TRANSFER PAPERWORK TO GO TO [facility]. PT IV TO THE LEFT AC, SALINE LOCKED. HEART MONITOR REMOVED. EMS TRANSPORTING PT TO FACILITY, ESCORTED OUT ON A STRETCHER.
[2020-06-08 19:08] LABS: ACID FAST SMEAR Negative (()); AFB SPECIMEN PROCESSING Not Indicated (())
--- NOTE | 2020-06-09 09:14 | MORECARE ---
CASE MANAGEMENT DISCHARGE SUMMARY PATIENT: TYSHAWN MILES UNIT: [id number] ADM DATE: 06/07/20 AGE: 54 : 67 SEX: F ROOM/BED: D.2235 AUTHOR: NAVJOT BROWN PHYSICIAN: REFERRING PHYSICIAN: YASEMIN TORRES MD DATE OF SERVICE: 06/09/20 Discharge Plan Patient Name: TYSHAWN MILES Facility: [facility]:[place] : 1965 Planned Disposition: Anticipated Discharge Date: Discharge Date: 06/08/2020 Expected LOS: Initial Reviewer: [email or web address] Initial Review Date: 06/07/2020 Generated: 06/09/20 10:14 am Comments DCP- Discharge Planning Updated by [email or web address]: Dayna Manning on 06/08/20 10:[address] Patient Name: TYSHAWN MILES Admission Status: ER Accout number: [id number] Admission Date: 06-07-2020 : 1965 Admission Diagnosis: Attending: CALE Current LOS: 1 Anticipated DC Date: Planned Disposition: Primary Insurance: MEDICAID [place] Discharge Planning Comments: PATIENT HAS BEEN ACCEPTED AT [place] [address] CEB[address] FOR HIGHER LEVEL OF CARE. CM TO FOLLOW AND ASSIST NEEDED. Ring Sorter: Dayna Manning DCP- Discharge Planning Updated by [email or web address]: Dayna Manning on 06/07/20 4:[address] Patient Name: TYSHAWN MILES Admission Status: ER Accout number: [id number] Admission Date: 06-07-2020 : 1965 Admission Diagnosis: Attending: CALE Current LOS: 1 Anticipated DC Date: Planned Disposition: Primary Insurance: MEDICAID [place] Discharge Planning Comments: CALLED [facility] FOR TRANSFER AND THEY DO NOT HAVE A LIVER SPECIALIST. Ring Sorter: Dayna Manning DCP- Discharge Planning Updated by [id number]: Merly Valentine on 06/07/20 11:[address] SPOKE WITH ELIANA ABOUT TRANSFERING AND THEY DO NOT HAVE A LIVER SPECIALIST DCP- Discharge Planning Updated by [email or web address]: Merly Valentine on 06/07/20 11:[address] PER IRINA AT [facility], THERE ARE NO BEDS AT THIS TIME DCP- Discharge Planning Updated by [id number]: Merly Valentine on 06/07/20 10:[address] TRANSFER PROCESS STARTED TO GO TO [facility] I FAXED FACESHEET TO HER AND THEY WILL CALL NANCY RAHMAN APN Last DP export: 06/08/20 10:10 am Patient Name: TYSHAWN MILES Page 64039 at 0914 All edits/amendments must be made on the electronic document DICTATION DATE: 06/09/20913 LITHOPLATE MAKER: DARREN 06/09/20913 RPT#: [id number] DC DATE:06/08/20 STATUS: DIS IN [facility] [address] [place] [address] END OF REPORT
[2020-06-09 16:09] LABS: FUNGUS STAIN Final report (())
== END 2020-06-08 14:39 | DRG 433 ==
LOC: D.ER 22:41 → D.MS 06-07 03:10
PROVIDERS: Family Medicine; General Practice; ADMIT Family Medicine; ATTEND Family Medicine
PROC: 0W9G3ZZ Drainage of Peritoneal Cavity, Percutaneous Approach (ICD-10-PCS; principal; 2020-06-07 08:09)
DX: K70.31 Alcoholic cirrhosis of liver with ascites (principal); F17.203 Nicotine dependence unspecified, with withdrawal; E80.6 Other disorders of bilirubin metabolism; R74.0 Nonspecific elevation of levels of transaminase and lactic acid dehydrogenase [LDH]; D64.9 Anemia, unspecified; E87.6 Hypokalemia; K80.20 Calculus of gallbladder without cholecystitis without obstruction; F41.8 Other specified anxiety disorders; F31.9 Bipolar disorder, unspecified

== ENCOUNTER 2020-06-12 20:31 | Emergency (ER) | payer MEDICAID ==
[~2020-06-12 20:31] MED LIST changes: +ATIVAN IV; +NICODERM CQ1 EAC3 TRANSDERM; +PROTONIX40 MG PO
[2020-06-12 20:53] VITALS: BP 98/61; Ht 149.9 cm
== END 2020-06-12 21:00 | disposition left against medical advice (07) ==
LOC: D.ER 20:31
DX: R10.9 Unspecified abdominal pain (principal)

== ENCOUNTER 2020-06-18 20:58 | Inpatient (IN) | payer MEDICAID ==
[2020-06-18 21:12] VITALS: Ht 149.9 cm
[2020-06-18 21:51] LABS: BASOPHILS 0.1 % (0-2); EOSINOPHILS 0 % (0-7); HEMATOCRIT 30.3 % (36.0-48.0); HEMOGLOBIN 9.4 g/dL (12-16); IMMATURE GRANULOCYTES 2.6 % (0-5); LYMPHOCYTES 2.7 % (15-50); MCH 28.2 pg (26.0-34.0); MEAN PLATELET VOLUME 10.2 fL (7.4-10.4); MONOCYTES 2.4 % (2-11); NEUTROPHILS 92.2 % (40-80); PLATELET COUNT 91 10x3/uL (130-400); RBC 3.33 10x6/uL (4.00-5.40); RDW 19.7 % (11.5-14.5); WBC 12.3 10x3/uL (4.8-10.8)
[2020-06-18 21:59] LABS: CALC OSMOLALITY 272 mosm/kg (275-300); CARBON DIOXIDE 29.2 mmol/L (21.0-32.0); CHLORIDE - SERUM 99 mmol/L (98-107); GLUCOSE 108 mg/dL (74-106); POTASSIUM - SERUM 3.4 mmol/L (3.5-5.1); SODIUM 135 mmol/L (136-145); UREA NITROGEN 17 mg/dL (7-18); eGFR NON AFRICAN AMERICAN 61 mL/min (90-120)
[2020-06-18 22:11] LABS: PLATELET ESTIMATE DECREASED
[2020-06-18 22:14] LABS: ALBUMIN 2.3 g/dL (3.4-5.0); ALKALINE PHOSPHATASE 102 U/L (30-120); ALT (SGPT) 18 U/L (10-68); AMYLASE - SERUM 11 U/L (25-115); BILIRUBIN - TOTAL 3.05 mg/dL (0.2-1.3); PROTEIN - SERUM 6.3 g/dL (6.4-8.2)
[2020-06-18 22:15] LABS: LIPASE 43 U/L (73-393); TROPONIN-I < 0.017 ng/mL (0.000-0.060)
[2020-06-18 22:40] VITALS: BP 114/68
[2020-06-18 22:46] LABS: BACTERIA MODERATE /hpf (NEGATIVE); BILIRUBIN NEGATIVE (NEGATIVE); EPITHELIAL CELLS 0-5 /hpf (0-5); GLUCOSE NEGATIVE (NEGATIVE); KETONE NEGATIVE (NEGATIVE); NITRITE NEGATIVE (NEGATIVE); RED CELLS - URINE 0-5 /hpf (0-5); UROBILINOGEN NORMAL (NORMAL)
--- NOTE | 2020-06-18 22:52 | NUR ---
LATIC ACID 2.9 DR[address] COPELAND INFORMED
[2020-06-18 22:54] LABS: UDS - AMPHET NEGATIVE QUAL (NEGATIVE); UDS - BARB NEGATIVE QUAL (NEGATIVE); UDS - BENZO POSITIVE QUAL (NEGATIVE); UDS - COCAINE NEGATIVE QUAL (NEGATIVE); UDS - OPIATE NEGATIVE QUAL (NEGATIVE); UDS - PCP NEGATIVE QUAL (NEGATIVE); UDS - THC NEGATIVE QUAL (NEGATIVE)
[2020-06-19] VITALS (14 sets, daily range): BP systolic 86–119; BP diastolic 48–64
[2020-06-19] MEDS ORDERED: PROPRANOLOL HCL20 MG PO (01:11)
--- NOTE | 2020-06-19 01:20 | NUR ---
RECEIVED TO ROOM.ALERT,ORIENTED. RESP UNLABORED. ABD DISTENDED. RED AND WARM TO TOUCH ON RIGHT SIDE. SL TO RAC. CL IN REACH REFUSED.SCD AND TELEMENTRY
--- NOTE | 2020-06-19 01:42 | NUR ---
REFUSES SCD AND TELEMENTRY
[2020-06-19 05:34] LABS: BASOPHILS 0.1 % (0-2); EOSINOPHILS 0 % (0-7); HEMATOCRIT 29.6 % (36.0-48.0); IMMATURE GRANULOCYTES 0.7 % (0-5); LYMPHOCYTES 4.8 % (15-50); MCH 27.9 pg (26.0-34.0); MCHC 30.4 g/dL (31.0-37.0); MCV 91.6 fL (80.0-100.0); MEAN PLATELET VOLUME 9.7 fL (7.4-10.4); MONOCYTES 2.5 % (2-11); NEUTROPHILS 91.9 % (40-80); PLATELET COUNT 102 10x3/uL (130-400); RBC 3.23 10x6/uL (4.00-5.40); RDW 19.7 % (11.5-14.5); WBC 10.5 10x3/uL (4.8-10.8)
[2020-06-19 06:14] LABS: ALBUMIN 2.1 g/dL (3.4-5.0); ANION GAP 14.8 mmol/L (8-16); BILIRUBIN - TOTAL 2.79 mg/dL (0.2-1.3); CALCIUM 7.8 mg/dL (8.5-10.1); CARBON DIOXIDE 27.4 mmol/L (21.0-32.0); CREATININE - SERUM 1.1 mg/dL (0.6-1.3); POTASSIUM - SERUM 3.2 mmol/L (3.5-5.1); PROTEIN - SERUM 6.2 g/dL (6.4-8.2)
[2020-06-19 06:59] LABS: C-REACTIVE PROTEIN 38.8 mg/dL (0.0-0.9)
--- NOTE | 2020-06-19 07:10 | NUR ---
A&O RESTING IN BED WITH EYES CLOSED. RESPIRATIONS EVEN AND UNLABORED. AROUSES TO VOICE. REDNESS OT RIGHT SIDE OF ABDOMEN. REFUSES SCDS AND TELEMETRY. IV TO LEFT FOREARM, NS INFUSING @ 100ML/HR. SITE PATENT WITHOUT REDNESS OR SWELLING. NPO EXCEPT WITH MEDS D/T PARACENTESIS THIS AM. POTASSIUM 3.2 THIS AM, WILL FOLLOW ELECTROLYTE PROTOCOL. LOW GRADE TEMP OF 99.1 THIS AM. ABDOMEN DISTENDED AND FIRM. DENIES ANY NEEDS AT THIS TIME. CALL LIGHT IN REACH. WILL CONTINUE TO MONITOR.
[2020-06-19 08:14] LABS: INR 1.47 (0.85-1.17); PROTIME 17.7 SECONDS (11.6-15.0)
--- NOTE | 2020-06-19 09:00 | NUR ---
RECEIVED CALL FROM IR THAT THEY WERE UNABLE TO PERFORM PARACENTESIS D/T PATIENT BEING HYPOTENSIVE 70/46 . IR BROUGHT PATIENT BACK TO THE ROOM. RAPID RESPONSE CALLED. PATIENT TEMP UP TO 100.4 ORAL, HR 117, BP 94/48, O2 94% RA. GAVE PATIENT 1000ML BOLUS. RECHECKED BP, 100/54. BP DROPS WHEN PATIENT FALLS ASLEEP. PATIENT RESPONSIVE, VERY SLEEPY. PLACED PATIENT ON FREQUENT VITALS. CALL LIGHT IN REACH. WILL CONTINUE TO MONITOR.
--- NOTE | 2020-06-19 11:00 | NUR ---
PATIENT BP 84/42. NOTIFIED ELKIN RAHMAN APRN. KNITTING TEACHER ORDERED ANOTHER BOLUS, 500ML. PLACED PATIENT ON O2 2L, NC D/T O2 SAT 89/90%. PATIENT RESPONSIVE, A&O. WILL CONTINUE TO MONITOR.
[2020-06-19 12:44] LABS: CKMB 0.4 U/L (0.0-3.6); CREATINE KINASE 41 UL (21-215)
[2020-06-19 12:46] LABS: TROPONIN-I < 0.017 ng/mL (0.000-0.060)
[2020-06-19 16:39] LABS: CKMB 0.1 U/L (0.0-3.6); CREATINE KINASE 47 UL (21-215)
[2020-06-19 16:45] LABS: TROPONIN-I < 0.017 ng/mL (0.000-0.060)
--- NOTE | 2020-06-19 18:32 | NUR ---
SITTING UP IN BED WITH EYES OPEN. NO C/O PAIN. NO S/S OF ACUTE DISTRESS NOTED. CALL LIGHT IN REACH. WILL CONTINUE TO MONITOR.
[2020-06-19 18:54] LABS: PROTEIN - BODY FLUID 1.1 G/DL
--- NOTE | 2020-06-19 20:20 | NUR ---
LYING IN BED. ALERT AND ORIENTED X4. CONFUSED AT TIMES. ABD IS DISTENDED AND FIRM. REDNESS NOTED FROM RT ABD TO MID ABD. DRSG NOTED TO RT ABD. TELEMETRY SHOWS ST WITH RATE OF 107. GEN WEAKNESS NOTED. USES BEDPAN. RESP EVEN AND NONLABORED. O2 @ 2L/NC. SALINE LOCK NOTED TO RT AC WITH MVI INFUSING. NONPROD COUGH AT TIMES. SR ELEVATED X2. CL IN REACH. BED ALARM IN USE FOR PT SAFETY.
[2020-06-19 21:13] LABS: MACROPHAGES BF 1 %; MESOTHELIALS BF 3 %; NEUT - BF 90 %
--- NOTE | 2020-06-20 01:54 | NUR ---
HAS BEEN AWAKE ALL NIGHT. HAS USED THE BEDPAN SEVERAL TIMES TO URINATE. NO DISTRESS. V/S STABLE. SR ELEVATED X2. CL IN REACH. GAURAV ALARM ON.
[2020-06-20 04:30] VITALS: BP 113/63
--- NOTE | 2020-06-20 06:33 | NUR ---
REFUSED CARDIAC ENZYMES LAST NIGHT AND AM LABS TODAY.
--- NOTE | 2020-06-20 07:40 | NUR ---
PT IS RESTING IN BED WITH EYES CLOSED. RESPIRATIONS ARE EVEN AND UNLABORED. PT IS EASILY AROUSED WITH VERBAL STIMULATION. PT IS AAO X 4 UPON AROUSAL. ABDOMINAL DISTENTION NOTED. DRESSING TO RLQ IS CDI. ABDOMEN IS FIRM TO PALPATION. BS ARE ACTIVE X 4. PT REPORTS TENDERNESS UPON PALPATION. PT IS REFUSING LAB DRAWS THIS AM. PT IS STATING "YALL ARENT DOING ANYTHING TO HELP ME". PT EDUCATED ON PLAN OF CARE AND DX. PT VERBALIZES UNDERSTANDING. ALL FALL PRECAUTIONS ARE IN PLACE. BED IS IN THE LOWEST POSITION. CALL LIGHT AND BEDSIDE TABLE AREWITHIN REACH. SIDE RAILS X 2. PT DENIES FURTHER NEEDS. WILL CONT TO MONITOR.
[2020-06-20 08:00] VITALS: BP 98/56
--- NOTE | 2020-06-20 10:13 | NUR ---
PT REFUSING LAB. PT EDUCATED ON IMPORTANCE OF MONITORING LAB VALUES. PT VERBALIZES UNDERSTANDING AND CONTINUES TO REFUSE LAB DRAW AT THIS TIME. PT STATES "IM TIRED OF BEING HERE. I WISH YALL WOULD LET ME GO HOME TO ". PT EDUCATED ON PLAN OF CARE AND DX. PT VERBALIZES UNDERSTANDING AND REQUESTS FOR NURSE TO LEAVE ROOM AND SHUT DOOR AT THIS TIME. WILL CONT TO MONITOR.
--- NOTE | 2020-06-20 12:30 | NUR ---
PT IS REFUSING ALL MEDICAL TREATMENT AND STATES "I AM GOING HOME. I AM LEAVING HERE AND I WANT TO GO HOME". PT IS STANDING AT SIDE OF BED. BED ALARM IS SOUNDING. PT ASKED TO SIT IN CHAIR TO HELP WITH DRESSING. PT IS AGREEABLE. PT CONTINUES TO REQUEST TO LEAVE AMA. PT EDUCATED ON AMA AND DX AND PLAN OF CARE. LUPE RENEE RN AT BEDSIDE GIVING FURTHER EDUCATION ON AMA. PT CONTINUES TO INSIST LEAVING AMA. AMA PAPERS SIGNED BY PATIENT AND PLACED IN CHART. PIV REMOVED FROM RIGHT AC WITH CATHETER TIP INTACT. DRESSING APPLIED. PT ESCORTED FROM ROOM VIA WHEELCHAIR AND PLACED IN TAXI CAB FOR TRANSPORTATION HOME. 49 TABLETS OF LIBRUIM AND 25 TABLETS OF REMERON RETURNED TO PT FROM PHARMACY.
[2020-06-20 17:09] LABS: ACID FAST SMEAR Negative (()); AFB SPECIMEN PROCESSING Concentration (())
[2020-06-21 11:11] LABS: FUNGUS STAIN Final report (())
== END 2020-06-20 13:18 | disposition left against medical advice (07) | DRG 432 ==
LOC: D.ER 20:58 → D.MS 06-19
PROVIDERS: Family Medicine; Family Medicine Adult Medicine; Radiology Diagnostic Radiology; Specialist; ADMIT Family Medicine; ATTEND Family Medicine
PROC: 0W9G3ZZ Drainage of Peritoneal Cavity, Percutaneous Approach (ICD-10-PCS; principal; 2020-06-19 14:05)
DX: K70.31 Alcoholic cirrhosis of liver with ascites (principal); J18.9 Pneumonia, unspecified organism; I82.0 Budd-Chiari syndrome; L03.311 Cellulitis of abdominal wall; J98.11 Atelectasis; F17.203 Nicotine dependence unspecified, with withdrawal; J44.0 Chronic obstructive pulmonary disease with (acute) lower respiratory infection; F31.9 Bipolar disorder, unspecified; F10.10 Alcohol abuse, uncomplicated; I95.9 Hypotension, unspecified; E87.6 Hypokalemia; D69.6 Thrombocytopenia, unspecified; D64.9 Anemia, unspecified; Z91.81 History of falling

== ENCOUNTER 2020-07-31 01:31 | Inpatient (IN) | payer MEDICAID ==
[~2020-07-31] VITALS: Ht 149.9 cm; Wt 63.5 kg
[2020-07-31] VITALS (7 sets, daily range): BP systolic 98–133; BP diastolic 53–68; Ht 149.9 cm; Wt 63.5 kg
[~2020-07-31 01:31] MED LIST changes: +PROPRANOLOL HCL20 MG PO
[2020-07-31 02:00] LABS: BASOPHILS 0.5 % (0-2); EOSINOPHILS 1.6 % (0-7); HEMATOCRIT 31.1 % (36.0-48.0); HEMOGLOBIN 10.4 g/dL (12-16); LYMPHOCYTES 19.2 % (15-50); MCH 30.8 pg (26.0-34.0); MCHC 33.4 g/dL (31.0-37.0); MEAN PLATELET VOLUME 8.7 fL (7.4-10.4); NEUTROPHILS 69.7 % (40-80); PLATELET COUNT 119 10x3/uL (130-400); RBC 3.38 10x6/uL (4.00-5.40); RDW 18.8 % (11.5-14.5); WBC 5.7 10x3/uL (4.8-10.8)
[2020-07-31 02:13] LABS: UDS - AMPHET NEGATIVE QUAL (NEGATIVE); UDS - BARB NEGATIVE QUAL (NEGATIVE); UDS - BENZO POSITIVE QUAL (NEGATIVE); UDS - COCAINE NEGATIVE QUAL (NEGATIVE); UDS - OPIATE NEGATIVE QUAL (NEGATIVE); UDS - PCP NEGATIVE QUAL (NEGATIVE); UDS - THC NEGATIVE QUAL (NEGATIVE)
[2020-07-31 02:17] LABS: BILIRUBIN NEGATIVE (NEGATIVE); KETONE NEGATIVE (NEGATIVE); NITRITE NEGATIVE (NEGATIVE); UROBILINOGEN NORMAL mg/dL (< 2)
[2020-07-31 02:18] LABS: BACTERIA FEW HPF (NONE SEEN); EPITHELIAL CELLS 0-5 /hpf (0-5); WHITE CELLS - URINE 0-5 HPF (0-4)
[2020-07-31 02:18] LABS: INR 1.3 (0.85-1.17); PROTIME 16.1 SECONDS (11.6-15.0)
[2020-07-31 02:19] LABS: APTT 41.7 SECONDS (22.8-39.4)
[2020-07-31 02:33] LABS: ALBUMIN 2.7 g/dL (3.4-5.0); ALKALINE PHOSPHATASE 162 U/L (30-120); ALT (SGPT) 10 U/L (10-68); AMYLASE - SERUM 38 U/L (25-115); CALC OSMOLALITY 253 mosm/kg (275-300); CALCIUM 8.2 mg/dL (8.5-10.1); CHLORIDE - SERUM 92 mmol/L (98-107); CKMB 0.2 U/L (0.0-3.6); CREATINE KINASE 13 UL (21-215); CREATININE - SERUM 0.8 mg/dL (0.6-1.3); GLUCOSE 114 mg/dL (74-106); LIPASE 223 U/L (73-393); MAGNESIUM - SERUM 1.7 mg/dL (1.8-2.4); PROTEIN - SERUM 6.4 g/dL (6.4-8.2); SODIUM 127 mmol/L (136-145); UREA NITROGEN 7 mg/dL (7-18); eGFR NON AFRICAN AMERICAN 79 mL/min (90-120)
[2020-07-31 02:42] LABS: TROPONIN-I < 0.017 ng/mL (0.000-0.060)
[2020-07-31 02:43] LABS: POTASSIUM - SERUM 2.8 mmol/L (3.5-5.1)
--- NOTE | 2020-07-31 02:59 | NUR ---
WOUND CLEANED OF DRY DRAINAGE. WET TO DRY DRESSING PLACED PT TOLERATED WITH SOME DISCOMFORT PT HAS SEVERAL SMALL OPEN SORES TO ARMS AND LEGS DRY BLOOD NOTED. PT STATES THE Y ARE FLEA BITES. PT HAS CATS.
--- NOTE | 2020-07-31 03:30 | NUR ---
PT TO CT VIA STRETCHER.
--- NOTE | 2020-07-31 03:44 | NUR ---
PT RETURNS FROM CT VIA STRETCHER.
--- NOTE | 2020-07-31 12:22 | NUR ---
ARRIVE BACK TO ROOM VIA BED FROM PROCEDURE. BP-133/60, HR-107, O2-93% RA. LEFT BACK DRESSING C/D/I. DENIES ANY NEEDS. CONTINUE PLAN OF CARE AND SAFETY PRECAUTIONS.
[2020-08-01 02:12] VITALS: BP 91/58
[2020-08-01 05:52] VITALS: BP 98/55
[2020-08-01 06:37] LABS: BASOPHILS 0.4 % (0-2); EOSINOPHILS 1.4 % (0-7); HEMATOCRIT 29.9 % (36.0-48.0); HEMOGLOBIN 9.5 g/dL (12-16); IMMATURE GRANULOCYTES 0.4 % (0-5); LYMPHOCYTES 16.9 % (15-50); MCHC 31.8 g/dL (31.0-37.0); MEAN PLATELET VOLUME 9.2 fL (7.4-10.4); MONOCYTES 11.8 % (2-11); NEUTROPHILS 69.1 % (40-80); PLATELET COUNT 130 10x3/uL (130-400); RBC 3.17 10x6/uL (4.00-5.40); WBC 5.7 10x3/uL (4.8-10.8)
[2020-08-01 06:46] LABS: MCV 94.3 fL (80.0-100.0)
[2020-08-01 07:00] VITALS: BP 92/54
--- NOTE | 2020-08-01 07:20 | NUR ---
RECIEVE REPORT. ALERT AND ORIENTED X4. RESTING IN BED PLAYING OF CELL PHONE. DENIES ANY NEEDS AT THIS TIME. NO SIGNS OF DISTRESS. CONTINUE PLAN OF CARE AND SAFETY PRECAUTIONS.
[2020-08-01 07:25] LABS: ALKALINE PHOSPHATASE 116 U/L (30-120); ALT (SGPT) 9 U/L (10-68); BILIRUBIN - TOTAL 1.49 mg/dL (0.2-1.3); CALCIUM 7.3 mg/dL (8.5-10.1); CARBON DIOXIDE 24.6 mmol/L (21.0-32.0); CHLORIDE - SERUM 102 mmol/L (98-107); CREATININE - SERUM 0.8 mg/dL (0.6-1.3); GLUCOSE 98 mg/dL (74-106); POTASSIUM - SERUM 3.9 mmol/L (3.5-5.1); PROTEIN - SERUM 4.8 g/dL (6.4-8.2); SODIUM 132 mmol/L (136-145); eGFR NON AFRICAN AMERICAN 79 mL/min (90-120)
[2020-08-01 07:27] LABS: CALC OSMOLALITY 261 mosm/kg (275-300); MAGNESIUM - SERUM 2.8 mg/dL (1.8-2.4); UREA NITROGEN 5 mg/dL (7-18)
[2020-08-01 11:00] VITALS: BP 95/48
--- NOTE | 2020-08-01 14:07 | NUR ---
Pt has a nonhealing wound on right side of abdomen. Abdomen is distended and firm to the touch. The wound measures 8cm x 10cm. The wound bed is downs in color. There is no odor or drainage. Pt states this was the site of a paracenthesis several weeks ago. She says she let her cat stay in her lap, which led to the wound not healing. She has since sent the cat to her brother's house - until the wound is healed. Recommended cleansing with micro-klenz wound exhibit cleaner and covering with bordered gauze. Wound care will continue monitoring.
[2020-08-01 15:00] VITALS: BP 97/57
--- NOTE | 2020-08-01 18:00 | NUR ---
ALERT AND ORIENTED X4. RESTING IN BED. DRESSING CHANGE TO RT ABDOMEN COMPLETE. DENIES ANY NEEDS. CONTINUE PLAN OF CARE AND SAFETY PRECAUTIONS.
[2020-08-01 19:58] VITALS: BP 114/67
[2020-08-02] VITALS: BP 97/64
[2020-08-02 04:00] VITALS: BP 80/50
[2020-08-02 06:06] LABS: BASOPHILS 0.3 % (0-2); EOSINOPHILS 2.7 % (0-7); HEMATOCRIT 30.7 % (36.0-48.0); HEMOGLOBIN 9.8 g/dL (12-16); IMMATURE GRANULOCYTES 0.3 % (0-5); LYMPHOCYTES 20.4 % (15-50); MCH 30.2 pg (26.0-34.0); MCHC 31.9 g/dL (31.0-37.0); MCV 94.8 fL (80.0-100.0); MEAN PLATELET VOLUME 8.9 fL (7.4-10.4); MONOCYTES 9.3 % (2-11); PLATELET COUNT 134 10x3/uL (130-400); RBC 3.24 10x6/uL (4.00-5.40); RDW 18.9 % (11.5-14.5); WBC 6.6 10x3/uL (4.8-10.8)
[2020-08-02 06:37] LABS: ALBUMIN 2.1 g/dL (3.4-5.0); ALKALINE PHOSPHATASE 131 U/L (30-120); ALT (SGPT) 9 U/L (10-68); BILIRUBIN - TOTAL 1.58 mg/dL (0.2-1.3); CALC OSMOLALITY 256 mosm/kg (275-300); CALCIUM 7.6 mg/dL (8.5-10.1); CARBON DIOXIDE 28.1 mmol/L (21.0-32.0); CHLORIDE - SERUM 99 mmol/L (98-107); CREATININE - SERUM 0.7 mg/dL (0.6-1.3); GLUCOSE 87 mg/dL (74-106); POTASSIUM - SERUM 4.3 mmol/L (3.5-5.1); PROTEIN - SERUM 4.7 g/dL (6.4-8.2); SODIUM 129 mmol/L (136-145); UREA NITROGEN 10 mg/dL (7-18); VANCOMYCIN - TROUGH 21.9 ug/mL (10.0-20.0); eGFR NON AFRICAN AMERICAN > 90 mL/min (90-120)
--- NOTE | 2020-08-02 09:37 | NUR ---
PT MANUAL BP 82/42 NOTIFED FARHAN OTTO ORDER GIVEN TO HOLD INDERAL 20MG PO. NO OTHER ORDER GIVEN WILL CONTINUE TO MONITOR PT.
[2020-08-02 10:52] VITALS: BP 82/42
[2020-08-02 14:54] VITALS: BP 88/56
--- NOTE | 2020-08-02 19:46 | NUR ---
URINE SPECIMINE COLLECTED AND TAKEN TO LAB.
[2020-08-02 20:00] VITALS: BP 86/48
[2020-08-02 21:57] LABS: CREATININE - URINE 144.3 mg/dL (30-125); PRO/CRE RATIO URINE 0.3 mg/g; PROTEIN - URINE 49.7 mg/dL (0.0-11.9)
[2020-08-03] VITALS: BP 94/52
[2020-08-03 00:14] LABS: HEMATOCRIT 25.2 % (36.0-48.0); HEMOGLOBIN 8.1 g/dL (12-16)
--- NOTE | 2020-08-03 03:08 | NUR ---
I have reviewed this patient and I concur with the Shift Assessment completed by the Licensed Practical Nurse today this shift.
[2020-08-03 04:00] VITALS: BP 86/54
[2020-08-03 06:36] LABS: INR 1.41 (0.85-1.17); PROTIME 17.1 SECONDS (11.6-15.0)
[2020-08-03 06:37] LABS: APTT 37.3 SECONDS (22.8-39.4)
[2020-08-03 06:45] LABS: ALBUMIN 1.8 g/dL (3.4-5.0); BILIRUBIN - TOTAL 1.82 mg/dL (0.2-1.3); CALCIUM 7.8 mg/dL (8.5-10.1); CARBON DIOXIDE 25.7 mmol/L (21.0-32.0); PROTEIN - SERUM 4.8 g/dL (6.4-8.2); THYROID STIMULATING HORMONE 1.85 uIU/mL (0.36-3.74)
[2020-08-03 07:11] LABS: BASOPHILS 0.3 % (0-2); EOSINOPHILS 1.4 % (0-7); HEMOGLOBIN 7.9 g/dL (12-16); IMMATURE GRANULOCYTES 0.3 % (0-5); LYMPHOCYTES 20.7 % (15-50); MCH 30.3 pg (26.0-34.0); MCHC 31.6 g/dL (31.0-37.0); MCV 95.8 fL (80.0-100.0); MEAN PLATELET VOLUME 9.3 fL (7.4-10.4); NEUTROPHILS 65.3 % (40-80); RBC 2.61 10x6/uL (4.00-5.40); RDW 18.9 % (11.5-14.5); WBC 7.2 10x3/uL (4.8-10.8)
[2020-08-03 07:15] LABS: PLATELET COUNT 184 10x3/uL (130-400)
[2020-08-03 07:20] LABS: ANION GAP 10.5 mmol/L (8-16); CREATININE - SERUM 0.9 mg/dL (0.6-1.3); POTASSIUM - SERUM 5.2 mmol/L (3.5-5.1)
[2020-08-03 08:10] VITALS: BP 80/47
[2020-08-03 11:44] VITALS: BP 80/47; BP 84/50
--- NOTE | 2020-08-03 12:34 | NUR ---
Nutrition Follow-up: S/p paracentesis this AM (-5800 cc). Remains NPO for EGD today; coffee ground emesis yesterday. Wt: 140# (07/31) Labs noted: Na 133, K+ 5.2, Ca 7.8, Alb 1.8, Ammonia 132 Meds noted: Protonix, Zofran, Tums, Florajen, electrolyte protocol -Rec resume diet as tolerated when medically feasible following procedure. -Need new wt if possible; noted daily wts ordered. -RD following.
--- NOTE | 2020-08-03 16:32 | MORECARE ---
CASE MANAGEMENT DISCHARGE SUMMARY PATIENT: TYSHAWN MILES UNIT: [id number] ADM DATE: 07/31/20 AGE: 55 : 67 SEX: F ROOM/BED: D.2106 AUTHOR: NAVJOT BROWN PHYSICIAN: REFERRING PHYSICIAN: JAMARCUS MAYER MD DATE OF SERVICE: 08/03/20 Discharge Plan Patient Name: TYSHAWN MILES Facility: [facility]:[place] : 1965 Planned Disposition: Home Anticipated Discharge Date: Discharge Date: Expected LOS: Initial Reviewer: [email or web address] Initial Review Date: 08/03/2020 Generated: 08/03/20 5:32 pm Patient Name: TYSHAWN MILES Page 99869 at 1632 All edits/amendments must be made on the electronic document DICTATION DATE: 08/03/201631 FICTION AND NONFICTION PROSE WRITER: DARREN 08/03/20 163 RPT#: [id number] DC DATE: STATUS: ADM IN [facility] [address] [place] [address] END OF REPORT
--- NOTE | 2020-08-03 16:40 | MORECARE ---
CASE MANAGEMENT DISCHARGE SUMMARY PATIENT: TYSHAWN NORTH UNIT: [id number] ADM DATE: 07/31/20 AGE: 55 : 67 SEX: F ROOM/BED: D.2106 AUTHOR: NAVJOT BROWN PHYSICIAN: REFERRING PHYSICIAN: JAMARCUS MAYER MD DATE OF SERVICE: 08/03/20 Discharge Plan Patient Name: TYSHAWN NORTH [facility] : 1965 Planned Disposition: Home Anticipated Discharge Date: Discharge Date: Expected LOS: Initial Reviewer: [email or web address] Initial Review Date: 08/03/2020 Generated: 08/03/20 5:40 pm DCPIA - Discharge Planning Initial Assessment Updated by [email or web address]: Ryann Murphy on 08/03/20 4:32 pm * Is the patient Alert and Oriented? Yes * How many steps to enter\exit or inside your home? Ramp/0 * PCP Dr. Guillermo * Pharmacy [facility] on [facility] * Preadmission Environment Home Alone * ADLs Partial Dependent * Partial ADLs (Assistance needed) Ambulation * Equipment Wheelchair * List name and contact numbers for known caregivers / representatives who currently or will assist patient after discharge: [place] - - [phone] * Verbal permission to speak to the caregivers and representatives has been obtained from the patient. Yes * Community resources currently utilized None * Additional services required to return to the preadmission environment? No * Can the patient safely return to the preadmission environment? Yes * Has this patient been hospitalized within the prior 30 days at any hospital? No Last DP export: 08/03/20 3:32 p Patient Name: TYSHAWN NORTH Page 77652 at 1640 All edits/amendments must be made on the electronic document DICTATION DATE: 08/03/20 1640 DEPOT AGENT: DARREN 08/03/20 1640 RPT#: [id number] DC DATE: STATUS: ADM IN [facility] [address] [place] [address] END OF REPORT
--- NOTE | 2020-08-03 16:55 | MORECARE ---
CASE MANAGEMENT DISCHARGE SUMMARY PATIENT: TYSHAWN NORTH UNIT: [id number] ADM DATE: 07/31/20 AGE: 55 : 67 SEX: F ROOM/BED: D.2106 AUTHOR: NAVJOT BROWN PHYSICIAN: REFERRING PHYSICIAN: JAMARCUS MAYER MD DATE OF SERVICE: 08/03/20 Discharge Plan Patient Name: TYSHAWN NORTH Facility: [facility]:[place] : 1965 Planned Disposition: Home Anticipated Discharge Date: Discharge Date: Expected LOS: Initial Reviewer: [email or web address] Initial Review Date: 08/03/2020 Generated: 08/03/20 5:54 pm Comments DCP- Discharge Planning Updated by [email or web address]: Ryann Murphy on 08/03/20 3:[address] Patient Name: TYSHAWN NORTH Admission Status: ER Accout number: [id number] Admission Date: 07-31-2020 : 1965 Admission Diagnosis:UNSPECIFIED ABDOMINAL PAIN Attending: MORENO, Current LOS: 3 Anticipated DC Date: Planned Disposition: Home Primary Insurance: MEDICAID [place] Discharge Planning Comments: CM met with patient to discuss discharge planning/needs. She lives alone in a disabled building on [address] [facility] [address] [facility]. She states her brother takes her to the grocery and helps with house hold chores "If I beg him." States she usually rides the [employer] bus to her doctor appointments. States she feels like she is not getting enough help for her home life. She states she fell out of a window and has back problems, so she is mainly in a wheelchair. I discussed availability of home health and DME needs. She states she would like home health and feels like she needs a nurse and a social media intern to see her for personal care needs. She states her brother will take her home on discharge. I spoke with Sorin with [facility] and he states they do have a social media intern that may be able to help with home needs. CM will continue to follow and assist with discharge planning/needs. County Program Technician: Ryann Murphy DCPIA - Discharge Planning Initial Assessment Updated by [id number]: Ryann Murphy on 08/03/20 4:32 pm * Is the patient Alert and Oriented? Yes * How many steps to enter\\exit or inside your home? Ramp/0 * PCP Dr. Guillermo * Pharmacy [facility] on [address] * Preadmission Environment Home Alone * ADLs Partial Dependent * Partial ADLs (Assistance needed) Ambulation * Equipment Wheelchair * List name and contact numbers for known caregivers / representatives who currently or will assist patient after discharge: [place] - - [phone] * Verbal permission to speak to the caregivers and representatives has been obtained from the patient. Yes * Community resources currently utilized None * Additional services required to return to the preadmission environment? No * Can the patient safely return to the preadmission environment? Yes * Has this patient been hospitalized within the prior 30 days at any hospital? No Last DP export: 08/03/20 3:40 p Patient Name: TYSHAWN NORTH Page 64071 at 1655 All edits/amendments must be made on the electronic document DICTATION DATE: 08/03/201654 COLLECTOR: DARREN 08/03/201654 RPT#: [id number] DC DATE: STATUS: ADM IN [facility] [address] [place] [address] END OF REPORT
--- NOTE | 2020-08-03 17:10 | MORECARE ---
CASE MANAGEMENT DISCHARGE SUMMARY PATIENT: TYSHAWN NORTH UNIT: [id number] ADM DATE: 07/31/20 AGE: 55 : 67 SEX: F ROOM/BED: D.2066 AUTHOR: NAVJOT BROWN PHYSICIAN: REFERRING PHYSICIAN: JAMARCUS MAYER MD DATE OF SERVICE: 08/03/20 Discharge Plan Patient Name: TYSHAWN NORTH Facility: [facility]:[place] : 1965 Planned Disposition: Home Anticipated Discharge Date: Discharge Date: Expected LOS: Initial Reviewer: [email or web address] Initial Review Date: 08/03/2020 Generated: 08/03/20 6:09 pm Comments DCP- Discharge Planning Updated by [email or web address]: Ryann Murphy on 08/03/20 4:[address] With patient's history of Bipolar, I have faxed clinical to [facility]. CM will continue to follow and assist with discharge planning/needs. DCP- Discharge Planning Updated by [email or web address]: Ryann Murphy on 08/03/20 3:[address] Patient Name: TYSHAWN NORTH Admission Status: ER Accout number: [id number] Admission Date: 07-31-2020 : 1965 Admission Diagnosis:UNSPECIFIED ABDOMINAL PAIN Attending: MORENO, Current LOS: 3 Anticipated DC Date: Planned Disposition: Home Primary Insurance: MEDICAID [place] Discharge Planning Comments: CM met with patient to discuss discharge planning/needs. She lives alone in a disabled building on [address]. She states her brother takes her to the grocery and helps with house hold chores "If I beg him." States she usually rides the [employer] bus to her doctor appointments. States she feels like she is not getting enough help for her home life. She states she fell out of a window and has back problems, so she is mainly in a wheelchair. I discussed availability of home health and DME needs. She states she would like home health and feels like she needs a nurse and a delinquency prevention social worker to see her for personal care needs. She states her brother will take her home on discharge. I spoke with Sorin with [facility] and he states they do have a delinquency prevention social worker that may be able to help with home needs. CM will continue to follow and assist with discharge planning/needs. [employer]center Consultant: Ryann Murphy DCPIA - Discharge Planning Initial Assessment Updated by [id number]: Ryann Jeffrey on 08/03/20 4:32 pm * Is the patient Alert and Oriented? Yes * How many steps to enter\\exit or inside your home? Ramp/0 * PCP Dr. Guillermo * Pharmacy [facility] on [address] * Preadmission Environment Home Alone * ADLs Partial Dependent * Partial ADLs (Assistance needed) Ambulation * Equipment Wheelchair * List name and contact numbers for known caregivers / representatives who currently or will assist patient after discharge: [place] [place] [facility] [phone] * Verbal permission to speak to the caregivers and representatives has been obtained from the patient. Yes * Community resources currently utilized None * Additional services required to return to the preadmission environment? No * Can the patient safely return to the preadmission environment? Yes * Has this patient been hospitalized within the prior 30 days at any hospital? No External Providers External Provider: [facility] Next Contact Date: Service Request Date: Service Type: Resolution: Reviewer: Comments: Coverage Notice Reviewer: [id number] - Ryann Delgadilloalla Notice Issued Date-Time: 08/03/2020 17:08 Notice Type: Patient Choice Letter Notice Delivered To: Patient Relationship to Patient: Saw Offbearer Name: Delivery Method: - Analilia Days: Prior Verbal Notification: Recipient Understood Notice: Recipient Signature: Med Rec Note Co-signed by Attending: Coverage Notice Comment: Last DP export: 08/03/20 3:55 p Patient Name: TYSHAWN NORTH Page 97846 at 1710 All edits/amendments must be made on the electronic document DICTATION DATE: 08/03/201708 SUPERVISOR [place] REPAIR: DARREN 08/03/201708 RPT#: [id number] MA DATE: STATUS: ADM IN [facility] [address] [place] [address] END OF REPORT
[2020-08-03 20:21] VITALS: BP 91/47
[2020-08-04 05:42] LABS: BASOPHILS 0.4 % (0-2); EOSINOPHILS 2.4 % (0-7); HEMATOCRIT 24.9 % (36.0-48.0); HEMOGLOBIN 8.1 g/dL (12-16); IMMATURE GRANULOCYTES 0.2 % (0-5); LYMPHOCYTES 23.1 % (15-50); MCH 29.2 pg (26.0-34.0); MCHC 32.5 g/dL (31.0-37.0); MONOCYTES 9.4 % (2-11); NEUTROPHILS 64.5 % (40-80); RBC 2.77 10x6/uL (4.00-5.40); RDW 20.1 % (11.5-14.5)
[2020-08-04 06:02] LABS: MCV 89.9 fL (80.0-100.0); PLATELET COUNT 135 10x3/uL (130-400); WBC 4.6 10x3/uL (4.8-10.8)
[2020-08-04 06:15] LABS: BILIRUBIN - TOTAL 2.09 mg/dL (0.2-1.3); CALCIUM 7.6 mg/dL (8.5-10.1); CARBON DIOXIDE 24.3 mmol/L (21.0-32.0); PROTEIN - SERUM 4.4 g/dL (6.4-8.2)
[2020-08-04 06:19] LABS: ALBUMIN 2.4 g/dL (3.4-5.0); ANION GAP 10.3 mmol/L (8-16); POTASSIUM - SERUM 3.6 mmol/L (3.5-5.1)
[2020-08-04 09:52] VITALS: BP 81/42
--- NOTE | 2020-08-04 11:21 | NUR ---
PATIENT WANTS TO LEAVE AMA. CHAN HARRIS NOTIFIED OF PATIENT WANTING TO LEAVE. AMA FORM SIGNED AND LEFT WRIST IV D/C, TIP INTACT.
--- NOTE | 2020-08-04 14:04 | MORECARE ---
CASE MANAGEMENT DISCHARGE SUMMARY PATIENT: TYSHAWN NORTH UNIT: [id number] ADM DATE: 07/31/20 AGE: 55 : 67 SEX: F ROOM/BED: D.2106 AUTHOR: KEVINDOC PHYSICIAN: REFERRING PHYSICIAN: JAMARCUS MAYER MD DATE OF SERVICE: 08/04/20 Discharge Plan Patient Name: TYSHAWN NORTH Facility: [facility]:[place] : 1965 Planned Disposition: Left Against Medical Advice Anticipated Discharge Date: 08/04/20 Discharge Date: 08/04/2020 Expected LOS: 4 Initial Reviewer: [email or web address] Initial Review Date: 08/03/2020 Generated: 08/04/20 3:03 pm Comments DCP- Discharge Planning Updated by [email or web address]: Lolis Barakat on 08/04/20 1:[address] Patient left AMA. DCP- Discharge Planning Updated by [id number]: Ryann Murphy on 08/03/20 4:[address] With patient's history of Bipolar, I have faxed clinical to [facility]. CM will continue to follow and assist with discharge planning/needs. DCP- Discharge Planning Updated by [email or web address]: Ryann Murphy on 08/03/20 3:[address] Patient Name: TYSHAWN NORTH Admission Status: ER Accout number: [id number] Admission Date: 07-31-2020 : 1965 Admission Diagnosis:UNSPECIFIED ABDOMINAL PAIN Attending: MORENO, Current LOS: 3 Anticipated DC Date: Planned Disposition: Home Primary Insurance: MEDICAID [place] Discharge Planning Comments: CM met with patient to discuss discharge planning/needs. She lives alone in a disabled building on [address]. She states her brother takes her to the grocery and helps with house hold chores "If I beg him." States she usually rides the [employer] bus to her doctor appointments. States she feels like she is not getting enough help for her home life. She states she fell out of a window and has back problems, so she is mainly in a wheelchair. I discussed availability of home health and DME needs. She states she would like home health and feels like she needs a nurse and a social work msw to see her for personal care needs. She states her brother will take her home on discharge. I spoke with Ray with [facility] and he states they do have a social work msw that may be able to help with home needs. CM will continue to follow and assist with discharge planning/needs. Knife Cutter: Ryann Murphy DCPIA - Discharge Planning Initial Assessment Updated by [email or web address]: Ryann Murphy on 08/03/20 4:32 pm * Is the patient Alert and Oriented? Yes * How many steps to enter\\exit or inside your home? Ramp/0 * PCP Dr. Guillermo * [facility] [address] * Preadmission Environment Home Alone * ADLs Partial Dependent * Partial ADLs (Assistance needed) Ambulation * Equipment Wheelchair * List name and contact numbers for known caregivers / representatives who currently or will assist patient after discharge: [place] - - [phone] * Verbal permission to speak to the caregivers and representatives has been obtained from the patient. Yes * Community resources currently utilized None * Additional services required to return to the preadmission environment? No * Can the patient safely return to the preadmission environment? Yes * Has this patient been hospitalized within the prior 30 days at any hospital? No Coverage Notice Reviewer: [id number] - Ryann Jeffrey Notice Issued Date-Time: 08/03/2020 17:08 Notice Type: Patient Choice Letter Notice Delivered To: Patient Relationship to Patient: Social Media Campaign Manager Name: Delivery Method: HAND - Hand Delivered Analilia Days: Prior Verbal Notification: Recipient Understood Notice: Yes Recipient Signature: Yes Med Rec Note Co-signed by Attending: Coverage Notice Comment: [facility] or any HH Last DP export: 08/03/20 4:10 p Patient Name: TYSHAWN NORTH Page 50399 at 1404 All edits/amendments must be made on the electronic document DICTATION DATE: 08/04/201402 PHYSIOTHERAPY ASSISTANT: DARREN 08/04/201402 RPT#: [id number] DC DATE:08/04/20 STATUS: DIS IN [facility] [address] [place] [address] END OF REPORT
--- NOTE | 2020-08-04 16:44 | MORECARE ---
CASE MANAGEMENT DISCHARGE SUMMARY PATIENT: TSYHAWN NORTH UNIT: [id number] ADM DATE: 07/31/20 AGE: 55 : 67 SEX: F ROOM/BED: D.2106 AUTHOR: KEVINDOC PHYSICIAN: REFERRING PHYSICIAN: JAMARCUS MAYER MD DATE OF SERVICE: 08/04/20 Discharge Plan Patient Name: TYSHAWN NORTH Facility: [facility]:[place] : 1965 Planned Disposition: Left Against Medical Advice Anticipated Discharge Date: 08/04/20 Discharge Date: 08/04/2020 Expected LOS: 4 Initial Reviewer: [email or web address] Initial Review Date: 08/03/2020 Generated: 08/04/20 5:43 pm Comments DCP- Discharge Planning Updated by [id number]: Lolis Barakat on 08/04/20 1:[address] Patient left AMA. DCP- Discharge Planning Updated by [email or web address]: Ryann Murphy on 08/03/20 4:[address] With patient's history of Bipolar, I have faxed clinical to [facility]. CM will continue to follow and assist with discharge planning/needs. DCP- Discharge Planning Updated by [email or web address]: Ryann Murphy on 08/03/20 3:[address] Patient Name: TYSHAWN NORTH Admission Status: ER Accout number: [id number] Admission Date: 07-31-2020 : 1965 Admission Diagnosis:UNSPECIFIED ABDOMINAL PAIN Attending: MORENO, Current LOS: 3 Anticipated DC Date: Planned Disposition: Home Primary Insurance: MEDICAID [place] Discharge Planning Comments: CM met with patient to discuss discharge planning/needs. She lives alone in a disabled building on [address]. She states her brother takes her to the grocery and helps with house hold chores "If I beg him." States she usually rides the [employer] bus to her doctor appointments. States she feels like she is not getting enough help for her home life. She states she fell out of a window and has back problems, so she is mainly in a wheelchair. I discussed availability of home health and DME needs. She states she would like home health and feels like she needs a nurse and a psychologist social to see her for personal care needs. She states her brother will take her home on discharge. I spoke with Ray with [facility] and he states they do have a psychologist social that may be able to help with home needs. CM will continue to follow and assist with discharge planning/needs. Front Desk Assistant: Ryann Murphy DCPIA - Discharge Planning Initial Assessment Updated by [email or web address]: Ryann Murphy on 08/03/20 4:32 pm * Is the patient Alert and Oriented? Yes * How many steps to enter\\exit or inside your home? Ramp/0 * PCP Dr. Guillermo * [facility] [address] * Preadmission Environment Home Alone * ADLs Partial Dependent * Partial ADLs (Assistance needed) Ambulation * Equipment Wheelchair * List name and contact numbers for known caregivers / representatives who currently or will assist patient after discharge: [place] - - [phone] * Verbal permission to speak to the caregivers and representatives has been obtained from the patient. Yes * Community resources currently utilized None * Additional services required to return to the preadmission environment? No * Can the patient safely return to the preadmission environment? Yes * Has this patient been hospitalized within the prior 30 days at any hospital? No Coverage Notice Reviewer: [id number] - Ryann Jeffrey Notice Issued Date-Time: 08/03/2020 17:08 Notice Type: Patient Choice Letter Notice Delivered To: Patient Relationship to Patient: Major Assembler Name: Delivery Method: HAND - Hand Delivered Analilia Days: Prior Verbal Notification: Recipient Understood Notice: Yes Recipient Signature: Yes Med Rec Note Co-signed by Attending: Coverage Notice Comment: [facility] or any HH Last DP export: 08/04/20 1:04 p Patient Name: TYSHAWN NORTH Page 03280 at 1644 All edits/amendments must be made on the electronic document DICTATION DATE: 08/04/201642 SALES MERCHANDISER: DARREN 08/04/201642 RPT#: [id number] DC DATE:08/04/20 STATUS: DIS IN [facility] [address] [place] [address] END OF REPORT
== END 2020-08-04 12:51 | disposition left against medical advice (07) | DRG 433 ==
LOC: D.ER 01:31 → D.M2 05:29
PROVIDERS: Family Medicine; General Practice; Internal Medicine Gastroenterology; Internal Medicine Nephrology; Radiology Vascular & Interventional Radiology; ADMIT Family Medicine; ATTEND Family Medicine
PROC: 0W9G3ZZ Drainage of Peritoneal Cavity, Percutaneous Approach (ICD-10-PCS; principal; 2020-07-31 11:18)
PROC: 0DJ08ZZ Inspection of Upper Intestinal Tract, Via Natural or Artificial Opening Endoscopic (ICD-10-PCS; 2020-08-03)
PROC: 0W9G3ZZ Drainage of Peritoneal Cavity, Percutaneous Approach (ICD-10-PCS; 2020-08-03)
DX: K70.31 Alcoholic cirrhosis of liver with ascites (principal); E87.1 Hypo-osmolality and hyponatremia; K22.10 Ulcer of esophagus without bleeding; K76.6 Portal hypertension; L03.311 Cellulitis of abdominal wall; D63.8 Anemia in other chronic diseases classified elsewhere; E87.6 Hypokalemia; K31.89 Other diseases of stomach and duodenum; F31.9 Bipolar disorder, unspecified; D52.9 Folate deficiency anemia, unspecified; Z87.891 Personal history of nicotine dependence